=== PATIENT | female | born 1995 | race Caucasian/White ===

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

== ENCOUNTER 2017-07-15 10:37 | Day surgery (SDC) | payer OTHER ==
[~2017-07-15 10:37] MED LIST changes: -cefOXitin 2 GM in Premix Bag 1 BAG IV ONE
[2017-07-15] MEDS ORDERED: Lidocaine 2% 5 ML SDV ONE (11:04)
[2017-07-15] MEDS ORDERED: Propofol 200 MG/20 ML SDV ONE ×2 (11:04→14:09)
[2017-07-15] MEDS ORDERED: Midazolam 1 MG/ML 2 ML SDV ONE (11:04)
[2017-07-15] MEDS ORDERED: fentaNYL 100 MCG/2 ML SDV ONE (11:04)
--- NOTE | 2017-07-15 11:46 | PCM.PREANE ---
Preanesthetic Assessment - Anesthesia/Transfusion/Family Hx Anesthesia History: Prior Anesthesia Without Reaction Family History of Anesthesia Reaction: No Transfusion History: No Prior Transfusion(s) - Review of Systems General: No Symptoms Pulmonary: No Symptoms Cardiovascular: No Symptoms Neurological: No Symptoms Other: Reports: None - Physical Assessment NPO Status Date: 07/14/17 O2 Sat by Pulse Oximetry: 96 Respiratory Rate: 16 Vital Signs: Last Vital Signs Temp 36.1 C 07/15/17 11:14 Pulse 82 07/15/17 11:14 Resp 16 07/15/17 11:14 BP 123/64 07/15/17 11:14 Pulse Ox 96 07/15/17 11:14 Height: 1.68 m Weight: 104.326 kg ASA Class: 2 Mental Status: Alert & Oriented x3 Airway Class: Mallampati = 1 Dentition: Reports: Normal Dentition ROM/Head Extension: Full Lungs: Clear to Auscultation, Normal Respiratory Effort Cardiovascular: Regular Rate, Regular Rhythm - Lab Values: Laboratory Last Values Urine HCG, Qual NEGATIVE (NEGATIVE) 07/15/17 10:41 - Allergies Allergies/Adverse Reactions: Allergies Allergy/AdvReac Type Severity Reaction Status Date / Time acetaminophen [From Vicodin] Allergy Itching Verified 07/10/17 10:47 hydrocodone [From Vicodin] Allergy Itching Verified 07/10/17 10:47 metronidazole Allergy Nausea Verified 07/10/17 10:47 - Anesthesia Plan Pre-Op Medication Ordered: None - Acknowledgements Anesthesia Type Planned: MAC Pt an Appropriate Candidate for the Planned Anesthesia: Yes Alternatives and Risks of Anesthesia Discussed w Pt/Guardian: Yes Pt/Guardian Understands and Agrees with Anesthesia Plan: Yes PreAnesthesia Questionnaire HEENT History: Reports: Other (See Below) Other HEENT History: wears glasses/contacts Cardiovascular History: Reports: None Respiratory History: Reports: Asthma Gastrointestinal History: Reports: Other (See Below) Other Gastrointestinal History: anal fistula Genitourinary History: Reports: None 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 Musculoskeletal History: Reports: None Neurological History: Reports: None Psychiatric History: Reports: Depression Endocrine/Metabolic History: Reports: Obesity/BMI 30+ Hematologic History: Reports: None Immunologic History: Reports: None Oncologic (Cancer) History: Reports: None Dermatologic History: Reports: None - Infectious Disease History Infectious Disease History: Reports: None - Past Surgical History Head Surgeries/Procedures: Reports: None HEENT Surgical History: Reports: Adenoidectomy, Tonsillectomy, Other (See Below) GI Surgical History: Reports: Other (See Below) Other GI Surgeries/Procedures: I&D of anal fistula x2 - Past Imaging History Past Imaging History: Reports: CAT Scan - SUBSTANCE USE Smoking Status *Q: Never Smoker Second Hand Smoke Exposure: No Days Per Week of Alcohol Use: 0 Recreational Drug Use History: No - HOME MEDS Home Medications: Home Meds Albuterol [Ventolin HFA] 1 - 2 puff INH ASDIRECTED PRN 07/10/17 [History] Fluticasone Propionate [Flonase Allergy Relief] 1 spray NASBOTH ASDIRECTED 07/10 [History] Fluticasone/Vilanterol [Breo Ellipta 200-25 Mcg INH] 1 puff INH DAILY 07/10/17 [ History] Inulin/Chromium Picolinate [Fiber Gummies] 1 tab.chew CHEW BID 07/10/17 [History ] - CURRENT (IN HOUSE) MEDS Current Meds: Current Medications Lactated Ringer's (Ringers, Lactated) 1,000 mls @ 125 mls/hr IV ASDIRECTED FLAKITO Last Admin: 07/15/17 11:14 Dose: 125 mls/hr Sodium Chloride (Saline Flush) 10 ml FLUSH ASDIRECTED PRN PRN Reason: Keep Vein Open Sodium Chloride (Saline Flush) 2.5 ml FLUSH ASDIRECTED PRN PRN Reason: Keep Vein Open Sodium Chloride (Saline Flush) 10 ml FLUSH ASDIRECTED PRN PRN Reason: Keep Vein Open Sodium Chloride (Saline Flush) 2.5 ml FLUSH ASDIRECTED PRN PRN Reason: Keep Vein Open Discontinued Medications Fentanyl (Sublimaze) Confirm Administered Dose 100 mcg .ROUTE .STK-MED ONE Stop: 07/15/17 11:05 Lidocaine (Xylocaine-Mpf 2%) Confirm Administered Dose 5 ml .ROUTE .STK-MED ONE Stop: 07/15/17 11:05 Midazolam HCl (Versed 1 Mg/Ml) Confirm Administered Dose 2 mg .ROUTE .STK-MED ONE Stop: 07/15/17 11:05 Propofol (Diprivan 20 Ml) Confirm Administered Dose 400 mg .ROUTE .STK-MED ONE Stop: 07/15/17 11:05
--- NOTE | 2017-07-15 14:45 | PCM.POSTAN ---
POST ANESTHESIA ASSESSMENT - MENTAL STATUS Mental Status: Alert, Oriented - RESPIRATORY Respiratory Status: Respiratory Rate WNL, Airway Patent, O2 Saturation Stable - CARDIOVASCULAR CV Status: Pulse Rate WNL, Blood Pressure Stable - GASTROINTESTINAL GI Status: No Symptoms - POST OP HYDRATION Hydration Status: Adequate & Stable
[2017-07-15 15:37] VITALS: BP 98/60
--- NOTE | 2017-07-15 16:15 | PCM.OPNOTE ---
- General Post-Op/Procedure Note Date of Surgery/Procedure: 07/15/17 Operative Procedure(s): Colonoscopy Findings: Normal colonoscopy. Biopsies taken in the proximal and distal colon. Colon was very spastic. Pre Op Diagnosis: Change in bowel habits. Post-Op Diagnosis: Normal appearing colon Anesthesia Technique: MAC Primary Surgeon: Megan Johns Condition: Good Free Text/Narrative:: Intake & Output 07/15/17 07/15/17 07/15/17 06:59 14:59 22:59 Intake Total 1350 Balance 1350
--- NOTE | 2017-07-15 21:35 | OR ---
SURGEON: AMANDEEP SOLER MD DATE OF PROCEDURE: 07/15/2017 PREOPERATIVE DIAGNOSIS: Change in bowel habits. POSTOPERATIVE DIAGNOSIS: Change in bowel habits. PROCEDURE PERFORMED: Diagnostic colonoscopy. ANESTHESIA: MAC. INSTRUMENT USED: Olympus colonoscope. EXTENT OF EXAM: To the cecum. PREPARATION: Good. LIMITATIONS: None. INDICATIONS FOR EXAMINATION: The patient is a 22-year-old female who has a history of 2 anterior anal fistulas, which were both treated with primary fistulotomies. It was recommended that she undergo a diagnostic colonoscopy by her colorectal surgeon. The patient comes to me with changes in her bowel habits especially after meals. The decision was made to proceed with a diagnostic colonoscopy. We discussed the procedure, expected perioperative course, and risks including bleeding, infection, or damage to surrounding structures including perforation. The patient verbalized understanding and wishes to proceed. PROCEDURE IN DETAIL: The patient was brought into the endoscopy suite and placed in the left lateral decubitus position. A time-out was completed verifying the patient's name, age, date of , allergies, and procedure to be performed. Monitored anesthesia care was induced and continuous oxygen was provided via nasal cannula throughout the procedure. After adequate sedation was achieved, a digital rectal exam was performed. This exam was within normal limits. A well lubricated colonoscope was inserted in the rectum and advanced under direct visualization to the level of the cecum. The cecum was identified by both visual and anatomic landmarks. A photograph was taken of the terminal ileum. Given the concern for possible inflammatory bowel disease, I inspected this area thoroughly. There was no evidence of any inflammation. A biopsy was taken of the terminal ileum anyway. A photograph was taken of the cecal cap as well as with the scope retroflexed within the cecum. The biopsy was taken of the cecal wall and sent for histologic testing. The scope was then fully withdrawn while examining the color, texture, anatomy, integrity, mucosa from the cecum to the anal canal. There was no evidence of any cobblestone appearance, inflammation, or ulceration within the colon. The scope was brought into the sigmoid colon and a biopsy was taken there as well as in the rectum. The scope was brought into the rectum and retroflexed to allow visualization of the anal canal opening. This appeared normal and a photograph was taken. The scope was then straightened out and removed from the patient. The patient tolerated the procedure well. The cecum to anus time was 9 minutes. The patient was transferred to the PACU in stable condition. ENDOSCOPIC DIAGNOSIS: Normal appearing colon, questionable spasticity of the colon during the scope. RECOMMENDATIONS: Follow up in clinic in 2 weeks. DANIEL CURRY /[id number]
== END 2017-07-15 15:30 | disposition home or self-care (01) ==
LOC: MW.SDS 10:37
PROVIDERS: ATTEND Surgery
DX: K63.89 Other specified diseases of intestine (principal); J45.909 Unspecified asthma, uncomplicated; E66.9 Obesity, unspecified; Z79.51 Long term (current) use of inhaled steroids; Z90.89 Acquired absence of other organs; Z98.890 Other specified postprocedural states; Z88.8 Allergy status to other drugs, medicaments and biological substances; Z88.6 Allergy status to analgesic agent; Z88.5 Allergy status to narcotic agent; Z68.30 Body mass index [BMI] 30.0-30.9, adult; Z90.49 Acquired absence of other specified parts of digestive tract
CPT/HCPCS: 45380; 81025; J2250; J3010; J7120; 00811; 88305; J2704

== ENCOUNTER 2018-03-05 19:21 | Emergency (ER) | payer OTHER ==
--- NOTE | 2018-03-05 19:34 | EDM.PDOC ---
ED HPI GENERAL MEDICAL PROBLEM - General Chief Complaint: Flank Pain Stated Complaint: PT HAS BLADDER INFECTION Time Seen by Provider: 03/05/18 19:34 Source of Information: Reports: Patient History Limitations: Reports: No Limitations - History of Present Illness INITIAL COMMENTS - FREE TEXT/NARRATIVE: HISTORY AND PHYSICAL: History of present illness: Patient is a 23-year-old female who presents to the emergency room with complaints of left flank pain that goes to the left lower abdomen. She does not "a little" dysuria. She states that she took a long nap this afternoon as she feels fatigued. Decreased appetite with mild nausea. She denies any fever, chills, chest pain, shortness of breath or cough. Denies any nausea, vomiting, diarrhea, or constipation. Last menstrual period was 2 years ago; has an IUD in place. Denies any concerns of STD or . Denies any vaginal bleeding or discharge. Denies any change in stools, no blood or mucous. Review of systems: As per history of present illness and below otherwise all systems reviewed and negative. Past medical history: As per history of present illness and as reviewed below otherwise noncontributory. Surgical history: As per history of present illness and as reviewed below otherwise noncontributory. Social history: No reported history of drug or alcohol abuse. Family history: As per history of present illness and as reviewed below otherwise noncontributory. Physical exam: General: Well-developed and well-nourished 23-year-old female. Alert and oriented. Nontoxic appearing and in no acute distress. HEENT: Atraumatic, normocephalic, pupils equal and reactive bilaterally, negative for conjunctival pallor or scleral icterus, mucous membranes moist, throat clear, neck supple, nontender, trachea midline. No drooling or trismus noted. No meningeal signs Lungs: Clear to auscultation, breath sounds equal bilaterally, chest nontender. Heart: S1S2, regular rate and rhythm without overt murmur Abdomen: Soft, nondistended, mild left lateral abdominal pain/tender. Negative for masses or hepatosplenomegaly. Negative costovertebral tenderness. Pelvis: Stable nontender. Genitourinary: Deferred. Rectal: Deferred. Skin: Intact, warm, dry. No lesions or rashes noted. Extremities: Atraumatic, negative for cords or calf pain. Neurovascular unremarkable. Neuro: Awake, alert, oriented. Cranial nerves II through XII unremarkable. Cerebellum unremarkable. Motor and sensory unremarkable throughout. Exam nonfocal. Notes: Lab work is unremarkable. I did offer to do a CT of the abdomen and pelvis if she was having pain still. She declines at this time. We discussed appropriate follow-up. We discussed signs and symptoms that would prompt her to return to the emergency room. She voices understanding and is agreeable to plan of care. Denies any further questions or concerns at this time. Diagnostics: CBC, CMP, UA, HCGU Therapeutics: Zofran ODT Prescription: Tramadol (#15) Zofran 4mg Impression: Abdominal pain Plan: 1. Lab work was normal today with the exception of small amount of bacteria ( could be an early UTI). A culture was added to this; we will call you if you need to be placed on an antibiotic. 2. Increase your oral fluids. Small frequent meals to help avoid stomach upset. 3.Tylenol and ibuprofen as needed for pain. Tramadol and Zofran as directed. The Tramadol may cause drowsiness, so do not take while driving or needing to be functioning outside the house. 4. Please follow-up with your primary care provider Thursday. Return to the ED as needed and as we discussed. Definitive disposition and diagnosis as appropriate pending reevaluation and review of above. Onset: Today Location: Reports: Abdomen, Back left flank Pain Score (Numeric/FACES): 8 - Related Data Allergies Allergy/AdvReac Type Severity Reaction Status Date / Time acetaminophen [From Vicodin] Allergy Itching Verified 07/10/17 10:47 codeine Allergy Hives Verified 03/05/18 19:46 hydrocodone [From Vicodin] Allergy Itching Verified 07/10/17 10:47 metronidazole Allergy Nausea Verified 07/10/17 10:47 Home Meds: Home Meds . [No Known Home Meds] 03/05/18 [History] Past Medical History HEENT History: Reports: Other (See Below) Other HEENT History: wears glasses/contacts Cardiovascular History: Reports: None Respiratory History: Reports: Asthma Gastrointestinal History: Reports: Other (See Below) Other Gastrointestinal History: anal fistula Genitourinary History: Reports: None [employer]CH[employer]M History: Reports: None Musculoskeletal History: Reports: None Neurological History: Reports: None Psychiatric History: Reports: Depression Endocrine/Metabolic History: Reports: Obesity/BMI 30+ Hematologic History: Reports: None Immunologic History: Reports: None Oncologic (Cancer) History: Reports: None Dermatologic History: Reports: None - Infectious Disease History Infectious Disease History: Reports: None - Past Surgical History Head Surgeries/Procedures: Reports: None HEENT Surgical History: Reports: Adenoidectomy, Tonsillectomy, Other (See Below) GI Surgical History: Reports: Other (See Below) Other GI Surgeries/Procedures: I&D of anal fistula x2 - Past Imaging History Past Imaging History: Reports: CAT Scan Social & Family History - Family History Family Medical History: Noncontributory - Caffeine Use Caffeine Use: Reports: None ED ROS GENERAL - Review of Systems Review Of Systems: ROS reveals no pertinent complaints other than HPI. ED EXAM, GI/ABD - Physical Exam Exam: See Below (See dictation) Course - Vital Signs Last Recorded V/S: Last Vital Signs Temp 97.4 F 03/05/18 19:35 Pulse 109 H 03/05/18 19:35 Resp 17 03/05/18 19:35 BP 140/69 03/05/18 19:35 Pulse Ox 96 03/05/18 19:35 - Orders/Labs/Meds Orders: Active Orders 24 hr Category Date Time Status CMP [COMPREHENSIVE METABOLIC PN,CMP] [CHEM] Stat Lab 03/05/18 20:16 Received CULTURE URINE [RM] Stat Lab 03/05/18 20:37 Ordered Labs: Laboratory Tests 03/05/18 03/05/18 03/05/18 Range/Units 19:34 20:05 20:16 WBC 9.53 (4.0-11.0) K/uL RBC 4.69 (4.30-5.90) M/uL Hgb 13.3 (12.0-16.0) g/dL Hct 40.4 (36.0-46.0) % MCV 86.1 (80.0-98.0) fL MCH 28.4 (27.0-32.0) pg MCHC 32.9 (31.0-37.0) g/dL RDW Std Deviation 40.7 (28.0-62.0) fl RDW Coeff of Ursula 13 (11.0-15.0) % Plt Count 339 (150-400) K/uL MPV 9.70 (7.40-12.00) fL Neut % (Auto) 62.6 (48.0-80.0) % Lymph % (Auto) 27.1 (16.0-40.0) % [place] % (Auto) 8.8 (0.0-15.0) % Eos % (Auto) 1.2 (0.0-7.0) % Baso % (Auto) 0.3 (0.0-1.5) % Neut # (Auto) 6.0 H (1.4-5.7) K/uL Lymph # (Auto) 2.6 H (0.6-2.4) K/uL Faulk # (Auto) 0.8 (0.0-0.8) K/uL Eos # (Auto) 0.1 (0.0-0.7) K/uL Baso # (Auto) 0.0 (0.0-0.1) K/uL Nucleated RBC % 0.0 /100WBC Nucleated RBCs # 0 K/uL Urine Color YELLOW Urine Appearance CLEAR Urine pH 6.0 (5.0-8.0) Ur Specific [place] 1.020 (1.001-1.035) Urine Protein NEGATIVE (NEGATIVE) mg/dL Urine Glucose (UA) NEGATIVE (NEGATIVE) mg/dL Urine Ketones NEGATIVE (NEGATIVE) mg/dL Urine Occult Blood NEGATIVE (NEGATIVE) Urine Nitrite NEGATIVE (NEGATIVE) Urine Bilirubin NEGATIVE (NEGATIVE) Urine Urobilinogen 0.2 (<2.0) EU/dL Ur Leukocyte Esterase NEGATIVE (NEGATIVE) Urine RBC 1-2 (0-2/HPF) Urine WBC 1-2 (0-5/HPF) Ur Epithelial Cells FEW (NONE-FEW) Urine Bacteria FEW (NEGATIVE) Urine HCG, Qual NEGATIVE (NEGATIVE) Meds: Medications Discontinued Medications Generic Name Dose Route Start Last Admin Trade Name Freq PRN Reason Stop Dose Admin Ondansetron HCl 4 mg 03/05/18 19:53 03/05/18 20:09 Zofran Odt PO 03/05/18 19:54 4 mg ONETIME ONE Administration Departure - Departure Time of Disposition: 20:47 Disposition: Home, Self-Care 01 Clinical Impression: Abdominal pain Qualifiers: Abdominal location: left lower quadrant Qualified Code(s): R10.32 - Left lower quadrant pain - Discharge Information Instructions: Abdominal Pain, Adult, [id number] Referrals: PCP,None [Primary Care Provider] - Forms: ED Department Discharge Additional Instructions: The following information is given to patients seen in the emergency department who are being discharged to home. This information is to outline your options for follow-up care. We provide all patients seen in our emergency department with a follow-up referral. The need for follow-up, as well as the timing and circumstances, are variable depending upon the specifics of your emergency department visit. If you don't have a primary care physician on staff, we will provide you with a referral. We always advise you to contact your personal physician following an emergency department visit to inform them of the circumstance of the visit and for follow-up with them and/or the need for any referrals to a consulting specialist. The emergency department will also refer you to a specialist when appropriate. This referral assures that you have the opportunity for follow-up care with a specialist. All of these measure are taken in an effort to provide you with optimal care, which includes your follow-up. Under all circumstances we always encourage you to contact your private physician who remains a resource for coordinating your care. When calling for follow-up care, please make the office aware that this follow-up is from your recent emergency room visit. If for any reason you are refused follow-up, please contact the [facility] Emergency Department at and asked to speak to the emergency department charge nurse. [facility] [address] [place] [id number] 1. Lab work was normal today with the exception of small amount of bacteria ( could be an early UTI). A culture was added to this; we will call you if you need to be placed on an antibiotic. 2. Increase your oral fluids. Small frequent meals to help avoid stomach upset. 3.Tylenol and ibuprofen as needed for pain. Tramadol and Zofran as directed. The Tramadol may cause drowsiness, so do not take while driving or needing to be functioning outside the house. 4. Please follow-up with your primary care provider Thursday. Return to the ED as needed and as we discussed. - My Orders Last 24 Hours: My Active Orders 03/05/18 20:16 CMP [COMPREHENSIVE METABOLIC PN,CMP] [CHEM] Stat 03/05/18 20:37 CULTURE URINE [RM] Stat - Assessment/Plan Last 24 Hours: My Active Orders 03/05/18 20:16 CMP [COMPREHENSIVE METABOLIC PN,CMP] [CHEM] Stat 03/05/18 20:37 CULTURE URINE [RM] Stat
[2018-03-05] MEDS ORDERED: Ondansetron 4 MG Tab.DIS PO ONE (19:53)
[2018-03-05 20:43] LABS: CHLORIDE,CL 103 mmol/L (98-107); SODIUM,NA 138 mmol/L (136-145)
[2018-03-05 21:57] VITALS: BP 129/67
== END 2018-03-05 21:04 | disposition home or self-care (01) ==
LOC: MW.ED 19:21
DX: R10.32 Left lower quadrant pain (principal); Z88.6 Allergy status to analgesic agent; Z88.5 Allergy status to narcotic agent; Z88.8 Allergy status to other drugs, medicaments and biological substances
CPT/HCPCS: 36415; 80053; 81001; 81025; 85025; 87086; 99284; A9270; 99283

== ENCOUNTER 2018-06-30 19:20 | Emergency (ER) | payer OTHER ==
[2018-06-30] MEDS ORDERED: Sodium Chloride 0.9% 10 ML Syringe FLUSH PRN (19:50)
[2018-06-30] MEDS ORDERED: Sodium Chloride 0.9% 2.5 ML Syringe FLUSH PRN (19:50)
--- NOTE | 2018-06-30 19:57 | EDM.PDOC ---
ED HPI GENERAL MEDICAL PROBLEM - General Chief Complaint: Gastrointestinal Problem Stated Complaint: POSSIBLE ANAL FISTULA Time Seen by Provider: 06/30/18 19:35 - History of Present Illness INITIAL COMMENTS - FREE TEXT/NARRATIVE: HISTORY AND PHYSICAL: History of present illness: The patient is a 23-year-old female who presents with a history of 2 perirectal/ perianal fistulas and abscesses the first being addressed here in 2014 and the second in 2016. Dr. Johns did the initial stage of the procedure in July 2016 where she had an anterior midline intersphincteric perianal fistula and abscess on the left and had drainage of the abscess and placement of a Seton; she then had the completion surgery with Dr. Boykin in [place] and has been doing well ever since. She had a screening colonoscopy last year with Dr. Johns and everything was okay. The patient says she's been taking antibiotics for sinusitis and has taken 8 days, she has 2 days left of the antibiotic, and those symptoms are improving and she noticed a bump in her perianal area on Thursday which was tender and swollen. She says that the bump has gotten bigger and it is in the region of her old scar. She said she has had chills but no fever and no nausea or vomiting and no urine output. She said that when she pushed on the bump on Thursday and also this morning pus blood and stool came out of it. The patient says that there is no stool in her urine and no stool from her vagina. She is concerned because in the past she waited too long and did not get treatment and then had to have a big surgery and she would like evaluation. She called the clinic and was referred here. She says she's having some lower abdominal pain but it is not severe. She takes control pills and denies . Review of systems: As per history of present illness and below otherwise all systems reviewed and negative. Past medical history: As per history of present illness and as reviewed below otherwise noncontributory. Surgical history: As per history of present illness and as reviewed below otherwise noncontributory. Social history: No reported history of drug or alcohol abuse. Family history: As per history of present illness and as reviewed below otherwise noncontributory. Physical exam: General: Well-developed well-nourished overweight female who is nontoxic and vital signs are noted by me HEENT: Atraumatic, normocephalic, negative for conjunctival pallor or scleral icterus, mucous membranes moist, throat clear, neck supple, nontender, trachea midline. Lungs: Clear to auscultation, breath sounds equal bilaterally, chest nontender. Heart: S1S2, regular rate and rhythm no overt murmurs Abdomen: Soft, nondistended, nontender. Negative for masses or hepatosplenomegaly. Negative for costovertebral tenderness. Pelvis: Stable nontender. Genitourinary: Deferred. Rectal: There is a small soft external hemorrhoid seen at approximately o'clock lithotomy position which is not thrombosed or tender and there are no fissures. Rectal tone is normal and there is a visible area of old scar tissue seen at a proximally 2:00 lithotomy position. The patient indicates this region as the site of the problem. There is no erythema or fluctuance and I am unable to express anything with firm palpation. This area is also not particularly swollen but feels like thickened scar tissue. On digital exam I do not feel any fullness although the patient did not tolerate the exam very well. There is no perineal erythema or other lesions seen. Extremities: Atraumatic, negative for cords or calf pain. Neurovascular unremarkable. Neuro: Awake, alert, oriented. Cranial nerves II through XII unremarkable. Cerebellum unremarkable. Motor and sensory unremarkable throughout. Exam nonfocal. Diagnostics: CBC CMP UCG CT scan of the pelvis with contrast Therapeutics: IV placement for CT 1947: Case was discussed with Dr. Johns and she would like to perform a CT scan to ensure that there is no more fluid or abscess sitting higher and out of reach of my digital exam. The patient is aware of this and is agreeable. 2139: Dr. Johns called into the ED as she has reviewed the CT scan and there is no evidence of any abscess or abnormality. She wants her to finish the course of antibiotics she is on, Augmentin, and she is comfortable following her up in less the patient wants to go back to [place]. I relayed all this information to the patient. Impression: Perirectal pain with history of abscesses and fistulas stable Definitive disposition and diagnosis as appropriate pending reevaluation and review of above. Rectal Pain Score (Numeric/FACES): 7 - Related Data Allergies Allergy/AdvReac Type Severity Reaction Status Date / Time acetaminophen [From Vicodin] Allergy Itching Verified 06/30/18 19:38 codeine Allergy Hives Verified 06/30/18 19:38 hydrocodone [From Vicodin] Allergy Itching Verified 06/30/18 19:38 metronidazole Allergy Nausea Verified 06/30/18 19:38 Home Meds: Home Meds Amoxicillin/Clavulanate K [Augmentin 875-125 MG] 1 tab DAILY 06/30/18 [History] DULoxetine [Cymbalta] 40 mg PO DAILY 06/30/18 [History] Past Medical History HEENT History: Reports: Other (See Below) Other HEENT History: wears glasses/contacts Cardiovascular History: Reports: None Respiratory History: Reports: Asthma Gastrointestinal History: Reports: Other (See Below) Other Gastrointestinal History: anal fistula Genitourinary History: Reports: None Other Genitourinary History: bladder infection [employer]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 [employer]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: 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 Musculoskeletal History: Reports: None Neurological History: Reports: None Psychiatric History: Reports: Depression Endocrine/Metabolic History: Reports: Obesity/BMI 30+ Hematologic History: Reports: None Immunologic History: Reports: None Oncologic (Cancer) History: Reports: None Dermatologic History: Reports: None - Infectious Disease History Infectious Disease History: Reports: None - Past Surgical History Head Surgeries/Procedures: Reports: None HEENT Surgical History: Reports: Adenoidectomy, Tonsillectomy, Other (See Below) GI Surgical History: Reports: Other (See Below) Other GI Surgeries/Procedures: I&D of anal fistula x2 - Past Imaging History Past Imaging History: Reports: CAT Scan Social & Family History - Family History Family Medical History: Noncontributory - Tobacco Use Smoking Status *Q: Never Smoker - Caffeine Use Caffeine Use: Reports: None - Recreational Drug Use Recreational Drug Use: No ED ROS GENERAL - Review of Systems Review Of Systems: ROS reveals no pertinent complaints other than HPI. ED EXAM, GENERAL - Physical Exam Exam: See Below (See dictation) Course - Vital Signs Last Recorded V/S: Last Vital Signs Temp 36.6 C 06/30/18 19:35 Pulse 90 06/30/18 19:35 Resp 18 06/30/18 19:35 BP 129/70 06/30/18 19:35 Pulse Ox 97 06/30/18 19:35 - Orders/Labs/Meds Orders: Active Orders 24 hr Category Date Time Status Pelvis w Cont [CT] Stat Exams 06/30/18 19:50 Taken Sodium Chloride 0.9% [Saline Flush] Med 06/30/18 19:50 Active 10 ml FLUSH ASDIRECTED PRN Sodium Chloride 0.9% [Saline Flush] Med 06/30/18 19:50 Active 2.5 ml FLUSH ASDIRECTED PRN Saline Lock Insert [OM.PC] Stat Oth 06/30/18 19:50 Ordered Medication Orders Sodium Chloride (Saline Flush) 10 ml FLUSH ASDIRECTED PRN PRN Reason: Keep Vein Open Sodium Chloride (Saline Flush) 2.5 ml FLUSH ASDIRECTED PRN PRN Reason: Keep Vein Open Labs: Laboratory Tests 06/30/18 06/30/18 06/30/18 Range/Units 19:50 20:00 20:00 WBC 8.98 (4.0-11.0) K/uL RBC 4.67 (4.30-5.90) M/uL Hgb 13.0 (12.0-16.0) g/dL Hct 39.2 (36.0-46.0) % MCV 83.9 (80.0-98.0) fL MCH 27.8 (27.0-32.0) pg MCHC 33.2 (31.0-37.0) g/dL RDW Std Deviation 38.1 (28.0-62.0) fl RDW Coeff of Ursula 13 (11.0-15.0) % Plt Count 392 (150-400) K/uL MPV 9.50 (7.40-12.00) fL Neut % (Auto) 60.9 (48.0-80.0) % Lymph % (Auto) 29.5 (16.0-40.0) % [place] % (Auto) 8.5 (0.0-15.0) % Eos % (Auto) 0.9 (0.0-7.0) % Baso % (Auto) 0.2 (0.0-1.5) % Neut # (Auto) 5.5 (1.4-5.7) K/uL Lymph # (Auto) 2.7 H (0.6-2.4) K/uL [place] # (Auto) 0.8 (0.0-0.8) K/uL Eos # (Auto) 0.1 (0.0-0.7) K/uL Baso # (Auto) 0.0 (0.0-0.1) K/uL Nucleated RBC % 0.0 /100WBC Nucleated RBCs # 0 K/uL Sodium 141 (136-145) mmol/L Potassium 3.7 (3.5-5.1) mmol/L Chloride 106 (98-107) mmol/L Carbon Dioxide 24.8 (21.0-32.0) mmol/L BUN 10 (7.0-18.0) mg/dL Creatinine 0.9 (0.6-1.0) mg/dL Est Cr Clr Drug Dosing 92.56 mL/min Estimated GFR (MDRD) > 60.0 ml/min Glucose 98 (74-106) mg/dL Calcium 9.6 (8.5-10.1) mg/dL Total Bilirubin 0.2 (0.2-1.0) mg/dL AST 16 (15-37) IU/L ALT 29 (14-63) IU/L Alkaline Phosphatase 88 (46-116) U/L Total Protein 7.9 (6.4-8.2) g/dL Albumin 3.5 (3.4-5.0) g/dL Globulin 4.4 H (2.6-4.0) g/dL Albumin/Globulin Ratio 0.8 L (0.9-1.6) Urine HCG, Qual NEGATIVE (NEGATIVE) Meds: Medications Generic Name Dose Route Start Last Admin Trade Name Freq PRN Reason Stop Dose Admin Sodium Chloride 10 ml 06/30/18 19:50 Saline Flush FLUSH ASDIRECTED PRN Keep Vein Open Sodium Chloride 2.5 ml 06/30/18 19:50 Saline Flush FLUSH ASDIRECTED PRN Keep Vein Open Discontinued Medications Generic Name Dose Route Start Last Admin Trade Name Freq PRN Reason Stop Dose Admin Iopamidol 100 ml 06/30/18 20:47 06/30/18 20:48 Isovue Multipack-370 (76%) IVPUSH 06/30/18 20:48 100 ml ONETIME STA Administration Departure - Departure Time of Disposition: 21:39 Disposition: Home, Self-Care 01 Condition: Good Clinical Impression: Rectal pain - Discharge Information Referrals: Sachin Heart MD [Primary Care Provider] - Forms: ED Department Discharge Additional Instructions: The following information is given to patients seen in the emergency department who are being discharged to home. This information is to outline your options for follow-up care. We provide all patients seen in our emergency department with a follow-up referral. The need for follow-up, as well as the timing and circumstances, are variable depending upon the specifics of your emergency department visit. If you don't have a primary care physician on staff, we will provide you with a referral. We always advise you to contact your personal physician following an emergency department visit to inform them of the circumstance of the visit and for follow-up with them and/or the need for any referrals to a consulting specialist. The emergency department will also refer you to a specialist when appropriate. This referral assures that you have the opportunity for followup care with a specialist. All of these measure are taken in an effort to provide you with optimal care, which includes your followup. Under all circumstances we always encourage you to contact your private physician who remains a resource for coordinating your care. When calling for followup care, please make the office aware that this follow-up is from your recent emergency room visit. If for any reason you are refused follow-up, please contact the [facility] emergency department at and ask to speak to the emergency department charge nurse. [facility] Professional Building [address] [place] [phone] Push hydration and continue to monitor your symptoms. Finish the Augmentin you' re currently on an call and schedule a follow-up appointment with Dr. Johns or with your colorectal surgeon in [place] as you choose. Return to ER as needed and as discussed - My Orders Last 24 Hours: My Active Orders 06/30/18 19:50 Pelvis w Cont [CT] Stat Sodium Chloride 0.9% [Saline Flush] 10 ml FLUSH ASDIRECTED PRN Sodium Chloride 0.9% [Saline Flush] 2.5 ml FLUSH ASDIRECTED PRN Saline Lock Insert [OM.PC] Stat - Assessment/Plan Last 24 Hours: My Active Orders 06/30/18 19:50 Pelvis w Cont [CT] Stat Sodium Chloride 0.9% [Saline Flush] 10 ml FLUSH ASDIRECTED PRN Sodium Chloride 0.9% [Saline Flush] 2.5 ml FLUSH ASDIRECTED PRN Saline Lock Insert [OM.PC] Stat
[2018-06-30 20:35] LABS: CHLORIDE,CL 106 mmol/L (98-107); SODIUM,NA 141 mmol/L (136-145)
[2018-06-30] MEDS ORDERED: Iopamidol 755 MG/ML 500 ML Multipack Bottle IVPUSH STA (20:47)
[2018-06-30 22:06] VITALS: BP 123/69
--- NOTE | 2018-07-01 14:04 | CT ---
EXAM DATE: 06/30/18 PATIENT'S AGE: 23 Patient: ROSETTA BHAGAT Facility: [place], [place] Site . Site : 1995 Study: CT Pelvis [id number] 8:59:44 PM Ordering Physician: Tonio Neumann Final Report: Indication: Perirectal abscess Technique: A pelvic CT from with intravenous contrast. 100 mL of Isovue 370 administered. Comparison: None available Findings: No discrete perirectal or perianal collection seen. The visualized gastrointestinal tract is within normal limits. No significant free fluid or free air within the pelvis. No discrete uterine or bladder abnormality seen. No adnexal mass. No abnormally enlarged lymph nodes. Unremarkable osseous structures. Impression: No perirectal or perianal abscess seen. Dictated by Yasmani Khanna MD @ 06/30/2018 9:23:13 PM Please note that all CT scans at this facility use dose modulation, iterative reconstruction, and/or weight-based dosing when appropriate to reduce radiation dose to as low as reasonably achievable. Dictated by: Yasmani Khanna MD @ 06/30/2018 21:24:09 (Electronic Signature) Report Signed by Proxy. [facility]
== END 2018-06-30 22:01 | disposition home or self-care (01) ==
LOC: MW.ED 19:20
DX: K62.89 Other specified diseases of anus and rectum (principal); E66.9 Obesity, unspecified; Z88.1 Allergy status to other antibiotic agents; Z88.5 Allergy status to narcotic agent
CPT/HCPCS: 36415; 72193; 80053; 81025; 85025; 99284; Q9967

== ENCOUNTER 2019-11-11 05:22 | Inpatient (IN) | payer OTHER ==
[2019-11-11] MEDS ORDERED: Citric Acid/Sodium Citrate Solution 30 ML Cup PO ONE (06:19)
[2019-11-11] MEDS ORDERED: Sodium Chloride 0.9% 10 ML SDV IV PRN (06:19)
[2019-11-11] MEDS ORDERED: Sodium Chloride 0.9% 2.5 ML Syringe FLUSH PRN (06:19)
[2019-11-11] MEDS ORDERED: Sodium Chloride 0.9% 10 ML Syringe FLUSH PRN (06:19)
[2019-11-11] MEDS ORDERED: Oxytocin/0.9 % Sodium Chloride 30 UNIT/500 ML BAG IV SCH (06:30)
[2019-11-11] MEDS ORDERED: Lactated Ringers 1,000 ML IV SCH (06:30)
--- NOTE | 2019-11-11 06:57 | PCM.PREANE ---
Preanesthetic Assessment - Anesthesia/Transfusion/Family Hx Anesthesia History: Prior Anesthesia Without Reaction Family History of Anesthesia Reaction: No Transfusion History: No Prior Transfusion(s) Intubation History: Unknown - Review of Systems General: No Symptoms Pulmonary: No Symptoms Cardiovascular: No Symptoms Gastrointestinal: No Symptoms Neurological: No Symptoms Other: Reports: None - Physical Assessment Height: 5 ft 6 in Weight: 144.242 kg ASA Class: 2 Mental Status: Alert & Oriented x3 Airway Class: Mallampati = 1 Dentition: Reports: Normal Dentition Thyro-Mental Finger Breadths: 3 Mouth Opening Finger Breadths: 3 ROM/Head Extension: Full Lungs: Clear to Auscultation, Normal Respiratory Effort Cardiovascular: Regular Rate, Regular Rhythm - Lab Values: Laboratory Last Values WBC 11.20 K/uL (4.0-11.0) H 11/11/19 06:10 RBC 4.37 M/uL (4.30-5.90) 11/11/19 06:10 Hgb 11.3 g/dL (12.0-16.0) L 11/11/19 06:10 Hct 36.3 % (36.0-46.0) 11/11/19 06:10 MCV 83.1 fL (80.0-98.0) 11/11/19 06:10 MCH 25.9 pg (27.0-32.0) L 11/11/19 06:10 MCHC 31.1 g/dL (31.0-37.0) 11/11/19 06:10 RDW Std Deviation 46.7 fl (28.0-62.0) 11/11/19 06:10 RDW Coeff of Ursula 15 % (11.0-15.0) 11/11/19 06:10 Plt Count 262 K/uL (150-400) 11/11/19 06:10 MPV 10.30 fL (7.40-12.00) 11/11/19 06:10 Nucleated RBC % 0.0 /100WBC 11/11/19 06:10 Nucleated RBCs # 0 K/uL 11/11/19 06:10 - Allergies Allergies/Adverse Reactions: Allergies Allergy/AdvReac Type Severity Reaction Status Date / Time metronidazole Allergy Facial Verified 11/07/19 12:14 Swelling nitrofurantoin Allergy Facial Verified 11/07/19 12:34 [From Macrobid] Swelling - Blood Blood Available: No - Anesthesia Plan Pre-Op Medication Ordered: None - Acknowledgements Anesthesia Type Planned: Spinal (general anesthesia back-up call) Pt an Appropriate Candidate for the Planned Anesthesia: Yes Alternatives and Risks of Anesthesia Discussed w Pt/Guardian: Yes Pt/Guardian Understands and Agrees with Anesthesia Plan: Yes PreAnesthesia Questionnaire HEENT History: Reports: Other (See Below) Other HEENT History: wears glasses/contacts Cardiovascular History: Reports: None Respiratory History: Reports: None Gastrointestinal History: Reports: Other (See Below) Other Gastrointestinal History: anal fistula Genitourinary History: Reports: None [employer]ING LEAD History: Reports: Musculoskeletal History: Reports: None Neurological History: Reports: None Psychiatric History: Reports: None Endocrine/Metabolic History: Reports: Obesity/BMI 30+ (BMI 51.3) Hematologic History: Reports: None Immunologic History: Reports: None Oncologic (Cancer) History: Reports: None Dermatologic History: Reports: None - Infectious Disease History Infectious Disease History: Reports: None - Past Surgical History Head Surgeries/Procedures: Reports: None HEENT Surgical History: Reports: Adenoidectomy, Tonsillectomy Cardiovascular Surgical History: Reports: None Respiratory Surgical History: Reports: None GI Surgical History: Reports: Other (See Below) Other GI Surgeries/Procedures: I&D of anal fistula x2 Female Surgical History: Reports: None Endocrine Surgical History: Reports: None Neurological Surgical History: Reports: None Musculoskeletal Surgical History: Reports: None Oncologic Surgical History: Reports: None Dermatological Surgical History: Reports: None - Past Imaging History Past Imaging History: Reports: CAT Scan - SUBSTANCE USE Smoking Status *Q: Never Smoker - HOME MEDS Home Medications: Home Meds Prenat 115/Iron Fum/Folic/Dss [ 19 Tablet] 1 each PO DAILY 08/19/19 [ History] polyethylene glycoL 3350 [Miralax] 17 gm PO DAILY 08/19/19 [History] Docusate Sodium [Colace] 100 mg PO DAILY 11/07/19 [History] Iron 150 mg PO DAILY 11/07/19 [History] - CURRENT (IN HOUSE) MEDS Current Meds: Current Medications Lactated Ringer's (Ringers, Lactated) 1,000 mls @ 500 mls/hr IV BOLUS FLAKITO Oxytocin/Sodium Chloride (Oxytocin 30 Unit/500 Ml-Ns) 30 unit in 500 mls @ 250 mls/hr IV TITRATE FLAKITO Cefazolin Sodium/Dextrose 2 gm (/ Premix) 50 mls @ 100 mls/hr IV ONETIME ONE Stop: 11/11/19 07:52 Sodium Chloride (Saline Flush) 10 ml FLUSH ASDIRECTED PRN PRN Reason: Keep Vein Open Sodium Chloride (Saline Flush) 2.5 ml FLUSH ASDIRECTED PRN PRN Reason: Keep Vein Open Sodium Chloride (Normal Saline) 10 ml IV ASDIRECTED PRN PRN Reason: IV Use Discontinued Medications Citric Acid/Sodium Citrate (Bicitra Solution) 30 ml PO ONETIME ONE Stop: 11/11/19 06:20
[2019-11-11] MEDS ORDERED: Oxytocin 10 Units/1 ML SDV ONE ×2 (07:20→08:34)
[2019-11-11] MEDS ORDERED: Ondansetron 4 MG/2 ML SDV ONE (07:20)
[2019-11-11] MEDS ORDERED: Phenylephrine 1% 10 MG/ML SDV ONE (07:20)
[2019-11-11] MEDS ORDERED: Morphine PF 10 MG/10 ML SDV ONE (07:20)
[2019-11-11] MEDS ORDERED: ceFAZolin 2 GM in Premix Bag 1 BAG IV ONE (07:23)
[2019-11-11] MEDS ORDERED: ceFAZolin/Dextrose,Iso-Osmotic 2 GM/50 ML Duplex Bag IV ONE (07:42)
[2019-11-11] MEDS ORDERED: diphenhydrAMINE 50 MG/ML SDV IVPUSH PRN ×2 (08:25→08:37)
[2019-11-11] MEDS ORDERED: Naloxone 0.4 MG/ML Syringe IVPUSH PRN (08:25)
[2019-11-11] MEDS ORDERED: Nalbuphine 10 MG/1 ML Vial IVPUSH PRN (08:25)
[2019-11-11] MEDS ORDERED: fentaNYL 100 MCG/2 ML SDV IVPUSH PRN (08:28)
[2019-11-11] MEDS ORDERED: Acetaminophen/oxyCODONE 325-5 MG Tab PO PRN ×2 (08:28→08:37)
[2019-11-11] MEDS ORDERED: Octyl 2-Cyanoacrylate 1 Tube ONE (08:32)
[2019-11-11] MEDS ORDERED: Bisacodyl 10 MG Supp RECTAL PRN (08:37)
[2019-11-11] MEDS ORDERED: Ondansetron 4 MG/2 ML SDV IVPUSH PRN (08:37)
[2019-11-11] MEDS ORDERED: Tranexamic Acid 1,000 MG in Sodium Chloride 0.9% 100 ML IV PRN (08:37)
[2019-11-11] MEDS ORDERED: Lanolin 100% Cream 7 GM Tube TOP PRN (08:37)
[2019-11-11] MEDS ORDERED: Oxytocin 10 Units/1 ML SDV IM PRN (08:37)
[2019-11-11] MEDS ORDERED: Methylergonovine 0.2 MG/1 ML Amp IM PRN (08:37)
[2019-11-11] MEDS ORDERED: Misoprostol 200 MCG Tab RECTAL PRN (08:37)
--- NOTE | 2019-11-11 08:37 | PCM.OPNOTE ---
- General Post-Op/Procedure Note Date of Surgery/Procedure: 11/11/19 Operative Procedure(s): primary low transverse Findings: Liveborn female 8/9 weight pending, normal appearing uterus tubes and ovaries, labored low uterine segment Pre Op Diagnosis: 38 6/7 weeks, prior fistulotomy and repair Post-Op Diagnosis: Same Anesthesia Technique: Spinal Primary Surgeon: Camelia Handy Secondary Surgeon: Mya Gonzales Anesthesia Provider: Maritza Bell Dining Car Steward: Mechelle Gonzalez Pathology: none Fluid Replacement, Intraop: 1,000 EBL in mLs: 500 Complications: None Known. Condition: Good
[2019-11-11] MEDS ORDERED: Oxytocin/Lactated Ringers 30 UNIT/500 ML BAG IV SCH (08:45)
[2019-11-11] MEDS: Ketorolac 30 MG/ML SDV IVPUSH SCH ×3 (09:11→20:23)
[2019-11-11] MEDS: Lactated Ringers 1,000 ML IV SCH ×2 (12:33→20:26)
--- NOTE | 2019-11-11 18:05 | OR ---
SURGEON: Camelia Handy M.D. DATE OF PROCEDURE: 11/11/2019 PREOPERATIVE DIAGNOSES: 1. 38-6/7 week intrauterine . 2. Prior fistulotomy and repair. 3. Prodromal labor. POSTOPERATIVE DIAGNOSES: 1. 38-6/7 week intrauterine . 2. Prior fistulotomy and repair. 3. Prodromal labor. PROCEDURE PERFORMED: Primary low-transverse section. PRIMARY SURGEON: Camelia Handy M.D. ANESTHESIA: Spinal. ESTIMATED BLOOD LOSS: 500 mL. FLUIDS: 1000 mL crystalloid. FINDINGS: Liveborn female. score of 8 and 9. Weight is pending. Normal-appearing uterus, tubes, and ovaries. Lower uterine segment was thin and labored. COMPLICATIONS: None known. DISPOSITION: Stable to Recovery. BRIEF HISTORY: This is a 24-year-old female, G1, P0. She presents for primary delivery due to a complicated prior fistulotomy and repair, desiring no labor at all. She has had irregular painful contractions over the past 2 weeks with cervical change in the clinic but not active labor. She presents for a primary delivery with risks discussed including bleeding; infection; injury to bowel, bladder, blood vessels or other organs; risk of thromboembolic event; and risk of anesthesia. Understanding all these risks, she does desire to proceed. DESCRIPTION OF PROCEDURE: With the patient in left tilt position, under adequate spinal analgesia, the abdomen was prepped with chlorhexidine and draped in usual fashion for abdominal surgery. SCDs were in place. Robledo catheter had been placed. An appropriate time-out was held. She had received 2 g of Ancef IV. After documentation of adequate analgesia, a transverse curvilinear incision was made 2 cm cephalad from the pubic symphysis and carried through subcutaneous tissue, which was dissected to the fascia, which was then scored transversely in the midline. The fascial incision was extended using curved Gonzales scissors. The fascia was elevated from the underlying rectus muscle using sharp and blunt dissection. The rectus muscles were bluntly in the midline. A finger was used to enter the peritoneal cavity. The incision was extended using blunt dissection. The Sampson O retractor was placed. The visceroperitoneum over the lower uterine segment was incised to develop an adequate bladder flap. A transverse curvilinear incision was made over the lower uterine segment. The lower uterine segment was noted to be markedly thinned, consistent with labor. A finger was used to enter the amniotic cavity. The incision was extended in a cephalad and caudad manner. Using blunt dissection, the head was delivered via the uterine incision. The infant was bulb suctioned by nose and mouth and the remainder of the 's body was delivered. After 1 minute, the cord was doubly clamped and cut. The infant was handed to the nurse in attendance at delivery. The infant was a liveborn female, score of 8 and 9. Weight is pending. Cord blood was collected for cord ABGs as well as routine cord blood sampling. Pitocin was initiated after delivery of the infant to assist with delivery the placenta which was removed manually. The cervix was opened with ring forceps. The uterine cavity was cleaned with a dry laparotomy tape. The uterine incision was closed with a running lock suture of 0 Polysorb. The uterine incision was inspected and it was hemostatic. A second layer was not placed due to concern about the thin lower uterine segment. After final inspection for hemostasis, the Sampson O retractor was removed. Tubes and ovaries had been inspected and appeared normal. A final inspection of the uterine incision confirmed hemostasis. The rectus muscle and peritoneum were loosely approximated in the midline using a running mattress suture of 0 Polysorb. The fascia was closed with a running suture of 0 Polysorb. Subcutaneous tissue was irrigated. Any areas of bleeding that were noted were cauterized. The deep subcutaneous tissue was reapproximated using a running suture of 0 plain and a subcuticular suture of 3-0 Monocryl followed by Dermabond was utilized for skin closure. Final sponge, needle, and instrument counts were correct. There were no know complications. Mother and baby are in Recovery in good condition. ABENA / PATRICIO /[id number]
[2019-11-11] MEDS: Docusate Sodium 100 MG Cap PO SCH (20:23)
[2019-11-12] MEDS: Ketorolac 30 MG/ML SDV IVPUSH SCH ×2 (03:59→09:45)
[2019-11-12] MEDS: Docusate Sodium 100 MG Cap PO SCH ×2 (10:37→21:44)
[2019-11-12] MEDS: Acetaminophen/oxyCODONE 325-5 MG Tab PO PRN ×3 (10:37→23:25)
--- NOTE | 2019-11-12 10:54 | PCM.PNPP ---
- General Info Date of Service: 11/12/19 Functional Status: Reports: Pain Controlled, Tolerating Diet, Ambulating, Urinating - Review of Systems General: Reports: Fatigue. Denies: Fever, Weakness Pulmonary: Denies: Shortness of Breath Cardiovascular: Denies: Chest Pain, Palpitations, Lightheadedness Gastrointestinal: Denies: Abdominal Pain, Nausea, Vomiting Genitourinary: Denies: Flank Pain Musculoskeletal: Reports: No Symptoms Skin: Reports: No Symptoms Neurological: Reports: No Symptoms Psychiatric: Reports: No Symptoms - General Info Date of Service: 11/12/19 - Patient Data Vital Signs - Most Recent: Last Vital Signs Temp 36.5 C 11/12/19 07:50 Pulse 91 11/12/19 07:50 Resp 16 11/12/19 07:50 BP 129/59 L 11/12/19 07:50 Pulse Ox 96 11/12/19 07:50 Weight - Most Recent: 144.242 kg I&O - Last 24 Hours: Intake & Output 11/11/19 11/12/19 11/12/19 22:59 06:59 14:59 Intake Total 400 Output Total 1750 Balance -1350 Lab Results - Last 24 Hours: Laboratory Results - last 24 hr 11/12/19 Range/Units 06:15 Hgb 9.2 L (12.0-16.0) g/dL Hct 29.7 L (36.0-46.0) % Med Orders - Current: Current Medications Bisacodyl (Dulcolax) 10 mg RECTAL ONETIME PRN PRN Reason: Constipation Diphenhydramine HCl (Benadryl) 25 mg IVPUSH Q6H PRN PRN Reason: Itching or Nausea Docusate Sodium (Colace) 100 mg PO BID ON LICENSE OF [facility] Last Admin: 11/12/19 10:37 Dose: 100 mg Emollient Ointment (Lansinoh Hpa) 0 gm TOP ASDIRECTED PRN PRN Reason: Sore Nipples Fentanyl (Sublimaze) 25 - 50 mcg IVPUSH Q30M PRN PRN Reason: Pain Lactated Ringer's (Ringers, Lactated) 1,000 mls @ 500 mls/hr IV BOLUS ON LICENSE OF [facility] Oxytocin/Sodium Chloride (Oxytocin 30 Unit/500 Ml-Ns) 30 unit in 500 mls @ 250 mls/hr IV TITRATE ON LICENSE OF [facility] Tranexamic Acid 1,000 mg/ (Sodium Chloride) 110 mls @ 660 mls/hr IV ONETIME PRN PRN Reason: Bleeding Lactated Ringer's (Ringers, Lactated) 1,000 mls @ 125 mls/hr IV ASDIRECTED FLAKITO Last Admin: 11/11/19 20:26 Dose: 125 mls/hr Oxytocin/Lactated Ringer's (Pitocin In Lr 30 Units/500 Ml) 30 unit in 500 mls @ 999 mls/hr IV TITRATE FLAKITO; Protocol Ibuprofen (Motrin) 800 mg PO Q8H PRN PRN Reason: mild pain or fever Methylergonovine Maleate (Methergine) 0.2 mg IM ONETIME PRN PRN Reason: Excessive Vaginal Bleeding Misoprostol (Cytotec) 1,000 mcg RECTAL ONETIME PRN PRN Reason: excessive bleeding Ondansetron HCl (Zofran) 4 mg IVPUSH Q4H PRN PRN Reason: Nausea/Vomiting Last Admin: 11/11/19 12:44 Dose: 4 mg Oxycodone/Acetaminophen (Percocet 325-5 Mg) 1 - 2 tab PO Q6H PRN PRN Reason: Pain Stop: 11/13/19 14:00 Last Admin: 11/12/19 00:46 Dose: 1 tab Oxycodone/Acetaminophen (Percocet 325-5 Mg) 1 tab PO Q4H PRN PRN Reason: Pain (moderate 4-6) Oxycodone/Acetaminophen (Percocet 325-5 Mg) 2 tab PO Q4H PRN PRN Reason: Pain (moderate 4-6) Last Admin: 11/12/19 10:37 Dose: 2 tab Oxytocin (Pitocin) 10 unit IM ASDIRECTED PRN PRN Reason: Excessive Vaginal Bleeding Sodium Chloride (Saline Flush) 10 ml FLUSH ASDIRECTED PRN PRN Reason: Keep Vein Open Sodium Chloride (Saline Flush) 2.5 ml FLUSH ASDIRECTED PRN PRN Reason: Keep Vein Open Sodium Chloride (Normal Saline) 10 ml IV ASDIRECTED PRN PRN Reason: IV Use Discontinued Medications Cefazolin Sodium/Dextrose (Ancef) Confirm Administered Dose 2 gm IV .STK-MED ONE Stop: 11/11/19 07:43 Citric Acid/Sodium Citrate (Bicitra Solution) 30 ml PO ONETIME ONE Stop: 11/11/19 06:20 Diphenhydramine HCl (Benadryl) 25 mg IVPUSH Q4H PRN PRN Reason: Itching Stop: 11/12/19 08:27 Last Admin: 11/11/19 12:43 Dose: 25 mg Cefazolin Sodium/Dextrose 2 gm (/ Premix) 50 mls @ 100 mls/hr IV ONETIME ONE Stop: 11/11/19 07:52 Ketorolac Tromethamine (Toradol) 30 mg IVPUSH Q6H FLAKITO Stop: 11/12/19 08:46 Last Admin: 11/12/19 03:59 Dose: 30 mg Morphine Sulfate (Duramorph Pf) Confirm Administered Dose 10 mg .ROUTE .STK-MED ONE Stop: 11/11/19 07:21 Nalbuphine HCl (Nubain) 5 mg IVPUSH Q3H PRN PRN Reason: Pruritis Stop: 11/12/19 08:27 Last Admin: 11/11/19 10:07 Dose: 5 mg Naloxone HCl (Narcan) 0.1 mg IVPUSH ONETIME PRN PRN Reason: Other Stop: 11/12/19 08:27 Octyl Cyanoacrylate (Dermabond Advance) Confirm Administered Dose 1 applic .ROUTE .STK-MED ONE Stop: 11/11/19 08:33 Ondansetron HCl (Zofran) Confirm Administered Dose 4 mg .ROUTE .STK-MED ONE Stop: 11/11/19 07:21 Oxytocin (Pitocin) Confirm Administered Dose 20 unit .ROUTE .STK-MED ONE Stop: 11/11/19 07:21 Oxytocin (Pitocin) Confirm Administered Dose 20 unit .ROUTE .STK-MED ONE Stop: 11/11/19 08:35 Phenylephrine HCl (Tera-Synephrine) Confirm Administered Dose 10 mg .ROUTE .STK- MED ONE Stop: 11/11/19 07:21 - Interaction Support Person: - Recovery Exam Fundal Tone: Firm Fundal Level: 1 Fingerbreadths Below Umbilicus Fundal Placement: Midline Lochia Amount: Small Lochia Color: Rubra/Red Perineum Description: Intact, Minimal Bruising/Swelling Episiotomy/Laceration: None Bladder Status: Indwelling Catheter in Place Urinary Elimination: Indwelling Catheter - Exam General: Alert, Oriented Lungs: Normal Respiratory Effort Cardiovascular: Regular Rate, Regular Rhythm GI/Abdominal Exam: Normal Bowel Sounds, Soft Extremities: Pedal Edema (trace). No: Dalia's Sign Skin: Warm, Dry, Intact Wound/Incisions: Healing Well, No Drainage. No: Erythema Neurological: No New Focal Deficit Psy/Mental Status: Alert, Normal Affect, Normal Mood - Problem List & Annotations (1) S/P repeat low transverse SNOMED Code(s): 809946605, [id number], 655370080, 509372854, 414153572 Code(s): Z98.891 - HISTORY OF UTERINE SCAR FROM PREVIOUS SURGERY Status: Acute Current Visit: Yes - Problem List Review Problem List Initiated/Reviewed/Updated: Yes - Assessment Assessment:: POD 1 status post repeat c section - Plan Plan:: VS and labs are reassuring. Continue postoperative/ cares.
--- NOTE | 2019-11-12 11:51 | PCM48HPAN ---
Post Anesthesia Note - EVALUATION WITHIN 48HRS OF ANESTHETIC Vital Signs in Normal Range: Yes Patient Participated in Evaluation: Yes Respiratory Function Stable: Yes Airway Patent: Yes Cardiovascular Function Stable: Yes Hydration Status Stable: Yes Pain Control Satisfactory: Yes Nausea and Vomiting Control Satisfactory: Yes Mental Status Recovered: Yes Vital Signs: Last Vital Signs Temp 36.5 C 11/12/19 07:50 Pulse 91 11/12/19 07:50 Resp 16 11/12/19 07:50 BP 129/59 L 11/12/19 07:50 Pulse Ox 96 11/12/19 07:50 - COMMENTS/OBSERVATIONS Free Text/Narrative:: full sensation in legs
[2019-11-12] MEDS: Ibuprofen 800 MG Tab PO PRN (14:45)
[2019-11-13] MEDS: Ibuprofen 800 MG Tab PO PRN ×2 (00:34→09:41)
[2019-11-13] MEDS: Acetaminophen/oxyCODONE 325-5 MG Tab PO PRN ×2 (06:32→11:31)
[2019-11-13] MEDS: Docusate Sodium 100 MG Cap PO SCH (09:42)
--- NOTE | 2019-11-13 11:02 | PCM.PNPP ---
- General Info Date of Service: 11/13/19 Functional Status: Reports: Pain Controlled, Tolerating Diet, Ambulating, Urinating - Review of Systems General: Denies: Fever, Weakness, Fatigue Pulmonary: Denies: Shortness of Breath Cardiovascular: Denies: Chest Pain, Palpitations, Lightheadedness Gastrointestinal: Denies: Abdominal Pain, Nausea, Vomiting Genitourinary: Denies: Flank Pain Musculoskeletal: Reports: No Symptoms Skin: Reports: No Symptoms Neurological: Reports: No Symptoms Psychiatric: Reports: No Symptoms - General Info Date of Service: 11/13/19 - Patient Data Vital Signs - Most Recent: Last Vital Signs Temp 36.3 C 11/13/19 07:00 Pulse 87 11/13/19 07:00 Resp 14 11/13/19 07:00 BP 122/73 11/13/19 07:00 Pulse Ox 95 11/13/19 07:00 Weight - Most Recent: 144.242 kg Med Orders - Current: Current Medications Bisacodyl (Dulcolax) 10 mg RECTAL ONETIME PRN PRN Reason: Constipation Diphenhydramine HCl (Benadryl) 25 mg IVPUSH Q6H PRN PRN Reason: Itching or Nausea Docusate Sodium (Colace) 100 mg PO BID [facility] Last Admin: 11/13/19 09:42 Dose: 100 mg Emollient Ointment (Lansinoh Hpa) 0 gm TOP ASDIRECTED PRN PRN Reason: Sore Nipples Last Admin: 11/12/19 17:33 Dose: 7 gram Fentanyl (Sublimaze) 25 - 50 mcg IVPUSH Q30M PRN PRN Reason: Pain Lactated Ringer's (Ringers, Lactated) 1,000 mls @ 500 mls/hr IV BOLUS [facility] Oxytocin/Sodium Chloride (Oxytocin 30 Unit/500 Ml-Ns) 30 unit in 500 mls @ 250 mls/hr IV TITRATE FLAKITO Tranexamic Acid 1,000 mg/ (Sodium Chloride) 110 mls @ 660 mls/hr IV ONETIME PRN PRN Reason: Bleeding Lactated Ringer's (Ringers, Lactated) 1,000 mls @ 125 mls/hr IV ASDIRECTED [facility] Last Admin: 11/11/19 20:26 Dose: 125 mls/hr Oxytocin/Lactated Ringer's (Pitocin In Lr 30 Units/500 Ml) 30 unit in 500 mls @ 999 mls/hr IV TITRATE FLAKITO; Protocol Ibuprofen (Motrin) 800 mg PO Q8H PRN PRN Reason: mild pain or fever Last Admin: 11/13/19 09:41 Dose: 800 mg Methylergonovine Maleate (Methergine) 0.2 mg IM ONETIME PRN PRN Reason: Excessive Vaginal Bleeding Misoprostol (Cytotec) 1,000 mcg RECTAL ONETIME PRN PRN Reason: excessive bleeding Ondansetron HCl (Zofran) 4 mg IVPUSH Q4H PRN PRN Reason: Nausea/Vomiting Last Admin: 11/11/19 12:44 Dose: 4 mg Oxycodone/Acetaminophen (Percocet 325-5 Mg) 1 - 2 tab PO Q6H PRN PRN Reason: Pain Stop: 11/13/19 14:00 Last Admin: 11/12/19 00:46 Dose: 1 tab Oxycodone/Acetaminophen (Percocet 325-5 Mg) 1 tab PO Q4H PRN PRN Reason: Pain (moderate 4-6) Last Admin: 11/12/19 14:49 Dose: 1 tab Oxycodone/Acetaminophen (Percocet 325-5 Mg) 2 tab PO Q4H PRN PRN Reason: Pain (moderate 4-6) Last Admin: 11/13/19 06:32 Dose: 2 tab Oxytocin (Pitocin) 10 unit IM ASDIRECTED PRN PRN Reason: Excessive Vaginal Bleeding Sodium Chloride (Saline Flush) 10 ml FLUSH ASDIRECTED PRN PRN Reason: Keep Vein Open Sodium Chloride (Saline Flush) 2.5 ml FLUSH ASDIRECTED PRN PRN Reason: Keep Vein Open Sodium Chloride (Normal Saline) 10 ml IV ASDIRECTED PRN PRN Reason: IV Use Discontinued Medications Cefazolin Sodium/Dextrose (Ancef) Confirm Administered Dose 2 gm IV .STK-MED ONE Stop: 11/11/19 07:43 Citric Acid/Sodium Citrate (Bicitra Solution) 30 ml PO ONETIME ONE Stop: 11/11/19 06:20 Diphenhydramine HCl (Benadryl) 25 mg IVPUSH Q4H PRN PRN Reason: Itching Stop: 11/12/19 08:27 Last Admin: 05/22/20 12:43 Dose: 25 mg Cefazolin Sodium/Dextrose 2 gm (/ Premix) 50 mls @ 100 mls/hr IV ONETIME ONE Stop: 11/11/19 07:52 Ketorolac Tromethamine (Toradol) 30 mg IVPUSH Q6H FLAKITO Stop: 11/12/19 08:46 Last Admin: 11/12/19 09:45 Dose: Not Given Morphine Sulfate (Duramorph Pf) Confirm Administered Dose 10 mg .ROUTE .STK-MED ONE Stop: 11/11/19 07:21 Nalbuphine HCl (Nubain) 5 mg IVPUSH Q3H PRN PRN Reason: Pruritis Stop: 11/12/19 08:27 Last Admin: 11/11/19 10:07 Dose: 5 mg Naloxone HCl (Narcan) 0.1 mg IVPUSH ONETIME PRN PRN Reason: Other Stop: 11/12/19 08:27 Octyl Cyanoacrylate (Dermabond Advance) Confirm Administered Dose 1 applic .ROUTE .STK-MED ONE Stop: 11/11/19 08:33 Ondansetron HCl (Zofran) Confirm Administered Dose 4 mg .ROUTE .STK-MED ONE Stop: 11/11/19 07:21 Oxytocin (Pitocin) Confirm Administered Dose 20 unit .ROUTE .STK-MED ONE Stop: 11/11/19 07:21 Oxytocin (Pitocin) Confirm Administered Dose 20 unit .ROUTE .STK-MED ONE Stop: 11/11/19 08:35 Phenylephrine HCl (Tera-Synephrine) Confirm Administered Dose 10 mg .ROUTE .STK- MED ONE Stop: 11/11/19 07:21 - Infant Interaction Support Person: - Recovery Exam Fundal Tone: Firm Fundal Level: 1 Fingerbreadths Below Umbilicus Fundal Placement: Midline Lochia Amount: Scant Lochia Color: Rubra/Red Perineum Description: Intact, Minimal Bruising/Swelling Episiotomy/Laceration: None Bladder Status: Voiding Urinary Elimination: Voided - Exam General: Alert, Oriented Lungs: Normal Respiratory Effort Cardiovascular: Regular Rate, Regular Rhythm GI/Abdominal Exam: Normal Bowel Sounds, Soft, Non-Tender Extremities: Pedal Edema (trace). No: Dalia's Sign Skin: Warm, Dry, Intact Wound/Incisions: Healing Well, No Drainage. No: Erythema Neurological: No New Focal Deficit Psy/Mental Status: Alert, Normal Affect, Normal Mood - Problem List & Annotations (1) S/P repeat low transverse SNOMED Code(s): 771292565, 66885876, 189796373, 385264937, 470678032 Code(s): Z98.891 - HISTORY OF UTERINE SCAR FROM PREVIOUS SURGERY Status: Acute Current Visit: Yes - Problem List Review Problem List Initiated/Reviewed/Updated: Yes - My Orders Last 24 Hours: My Active Orders 11/13/19 11:01 Ready for Discharge [RC] PER UNIT ROUTINE - Assessment Assessment:: POD 2 status post repeat c section - Plan Plan:: Discharge to home today. Discharge instructions reviewed. Follow up at [facility] 2 and 6 weeks. Doing well overall.
[2019-11-13 12:19] VITALS: BP 122/85; PULSE 98
[2019-11-13] MEDS ORDERED: Measles, Mumps & Rubella Vaccine 0.5 ML SDV SUBCUT ONE (12:44)
== END 2019-11-13 13:41 | disposition home or self-care (01) | DRG 788 ==
LOC: MW.OB 05:22
PROVIDERS: ADMIT Obstetrics & Gynecology; ATTEND Obstetrics & Gynecology
PROC: 10D00Z1 Extraction of Products of Conception, Low, Open Approach (ICD-10-PCS; principal; 2019-11-11)
PROC: 3E0234Z Introduction of Serum, Toxoid and Vaccine into Muscle, Percutaneous Approach (ICD-10-PCS; 2019-11-13)
DX: O82 Encounter for cesarean delivery without indication (principal); Z37.0 Single live birth; Z3A.38 38 weeks gestation of pregnancy; Z98.890 Other specified postprocedural states; Z23 Encounter for immunization
CPT/HCPCS: 36415; 51702; 82803; 85014; 85018; 85027; 86592; 86593; 86850; 86900; 86901; 90471; 90707; A9270-GY; J0690; J1200; J1885; J2270; J2300; J2370; J2405; J2590; J7120

== ENCOUNTER 2020-10-26 22:11 | Emergency (ER) | payer OTHER ==
--- NOTE | 2020-10-26 22:43 | EDM.PDOC ---
ED HPI GENERAL MEDICAL PROBLEM - General Chief Complaint: Skin Complaint Stated Complaint: RECURRING FISSULAS Time Seen by Provider: 10/26/20 22:29 - History of Present Illness INITIAL COMMENTS - FREE TEXT/NARRATIVE: HPI This patient with multiple procedures for prior rectal fissures has also had hemorrhoids in the past. Tonight she has excruciating pain. She took a picture of the perianal area. She has had some bleeding from there. The picture was taken an hour ago and shows some inflammation but no obvious thrombosed hemorrhoid. The pain is excruciating local in the perianal area and associated with bright red bleeding. She has had no BM for 2 and half days. [] Review of systems: As per history of present illness and below otherwise all systems reviewed and negative. Past medical history: As per history of present illness and as reviewed below otherwise noncontributory. Surgical history: As per history of present illness and as reviewed below otherwise noncontributory. Social history: No reported history of drug or alcohol abuse. Family history: As per history of present illness and as reviewed below otherwise noncontributory. Physical exam: Constitutional - well developed, well-nourished and in no acute distress HEENT - normocephalic, no evidence of trauma - external nose and mouth normal - no mass in neck and no JVD - mucosae moist EYES - full EOM, PERRL, no icterus - no evidence of inflammation, injection, or drainage Respiratory - no respiratory distress, equal bilateral expansion Rectal the perianal soft tissues has a thrombosed firm blueberry sized hemorrhoid at 2:00 on the anal entrance. On the picture from 1 hour ago it was not enlarged and engorged like this. It is exquisitely tender. Musculoskeletal no gross deformity of long bones or joints - no tenderness, swelling or edema Neurologic - Alert and oriented times four - CN II-XII grossly intact - motor sensory and coordination symmetrically normal Psychiatric - appropriate mood and affect with normal thought content Hematologic - No petechiae or purpura - mucosa appropriate color and sclera not pale - normal nail bed color and refill Integument - no rash or evidence of trauma - normal turgor Diagnostics: [] Therapeutics: [] Impression: [] Plan: [] Definitive disposition and diagnosis as appropriate pending reevaluation and review of above. Rectal Pain Score (Numeric/FACES): 7 - Related Data Allergies Allergy/AdvReac Type Severity Reaction Status Date / Time metronidazole Allergy Facial Verified 10/26/20 22:23 Swelling nitrofurantoin Allergy Facial Verified 10/26/20 22:23 [From Macrobid] Swelling Home Meds: Home Meds Desogestrel/Ethinyl Estradiol [Apri] 1 tab PO DAILY 10/26/20 [History] Ergocalciferol (Vitamin D2) [Vitamin D2] 1.25 mg PO DAILY 10/26/20 [History] Phentermine HCl 15 mg PO DAILY 10/26/20 [History] Past Medical History HEENT History: Reports: Other (See Below) Other HEENT History: wears glasses/contacts Cardiovascular History: Reports: None Respiratory History: Reports: None Other Respiratory History: hx asthma, as a child, sometimes still use an inhaler when sick. 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: Musculoskeletal History: Reports: None Neurological History: Reports: None Psychiatric History: Reports: None Other Psychiatric History: not on meds during Endocrine/Metabolic History: Reports: Obesity/BMI 30+ (BMI 51.3) Hematologic History: Reports: None Other Hematologic History: induced anemia Immunologic History: Reports: None Oncologic (Cancer) History: Reports: None Dermatologic History: Reports: None - Infectious Disease History Infectious Disease History: Reports: None - Past Surgical History Head Surgeries/Procedures: Reports: None HEENT Surgical History: Reports: Adenoidectomy, Tonsillectomy Cardiovascular Surgical History: Reports: None Respiratory Surgical History: Reports: None GI Surgical History: Reports: Other (See Below) Other GI Surgeries/Procedures: I&D of anal fistula x2 Female Surgical History: Reports: None Endocrine Surgical History: Reports: None Neurological Surgical History: Reports: None Musculoskeletal Surgical History: Reports: None Oncologic Surgical History: Reports: None Dermatological Surgical History: Reports: None - Past Imaging History Past Imaging History: Reports: CAT Scan Social & Family History - Family History Family Medical History: No Pertinent Family History - Tobacco Use Tobacco Use Status *Q: Never Tobacco User Second Hand Smoke Exposure: No - Caffeine Use Caffeine Use: Reports: Other Other Caffeine Use: none this - Recreational Drug Use Recreational Drug Use: No ED ROS GENERAL - Review of Systems Review Of Systems: Comprehensive ROS is negative, except as noted in HPI. ED EXAM, SKIN/RASH Exam: See Below Text/Narrative:: My physical exam is in the [facility] ED SKIN PROCEDURES - I&D Site: Anal entrance Skin Prep: Providone-Iodine (Betadine) Local Anesthesia - Bupivicaine (Marcaine): Other (Topical LAT) Area Incised With: 11 Blade Progress/Comments: After let was applied and the patient had obtained adequate anesthesia Betadine prep was done and the thrombosed hemorrhoid was incised with an 11 blade. A grapelike clot came out and it was hemostatic after that. Course - Vital Signs Last Recorded V/S: Last Vital Signs Temp 36.6 C 10/26/20 22:17 Pulse 101 H 10/26/20 22:17 Resp 18 10/26/20 22:17 BP 146/93 H 10/26/20 22:17 Pulse Ox 96 10/26/20 22:17 - Orders/Labs/Meds Meds: Medications Discontinued Medications Generic Name Dose Route Start Last Admin Trade Name Anila PRN Reason Stop Dose Admin Lidocaine/Tetracaine 5 ml 10/26/20 23:46 10/26/20 23:53 Lidocaine/Epinephrine/Tetracaine Soln 1 Ml TOP 10/26/20 23:47 2 ml ONETIME ONE Administration Departure - Departure Time of Disposition: 00:27 Disposition: Home, Self-Care 01 Condition: Good Clinical Impression: Thrombosed external hemorrhoid - Discharge Information Instructions: Hemorrhoids, [id number] Referrals: Tessa De La Cruz NP [Primary Care Provider] - Forms: ED Department Discharge Additional Instructions: Sits baths, baby wipes, constipation care with stool softeners and plenty of f luids. You can use hemorrhoid cream which is available [id number]. [facility] - General Surgery Professional Building [address] [place] [address], [address] [place] [address] The following information is given to patients seen in the emergency department who are being discharged to home. This information is to outline your options for follow-up care. We provide all patients seen in our emergency department with a follow-up referral. The need for follow-up, as well as the timing and circumstances, are variable depending upon the specifics of your emergency department visit. If you don't have a primary care physician on staff, we will provide you with a referral. We always advise you to contact your personal physician following an emergency department visit to inform them of the circumstance of the visit and for follow-up with them and/or the need for any referrals to a consulting specialist. The emergency department will also refer you to a specialist when appropriate. This referral assures that you have the opportunity for follow-up care with a specialist. All of these measure are taken in an effort to provide you with optimal care, which includes your follow-up. Under all circumstances we always encourage you to contact your private physician who remains a resource for coordinating your care. When calling for follow-up care, please make the office aware that this follow-up is from your recent emergency room visit. If for any reason you are refused follow-up, please contact the [facility] Emergency Department at and asked to speak to the emergency department charge nurse. Sepsis Event Note (ED) - Evaluation Sepsis Screening Result: No Definite Risk - Focused Exam Vital Signs: Vital Signs Temp Pulse Resp BP Pulse Ox 10/26/20 22:17 36.6 C 101 H 18 146/93 H 96
[2020-10-26] MEDS ORDERED: Lidocaine/EPINEPHrine/Tetracaine Soln 1 ML TOP ONE (23:46)
[2020-10-27 00:41] VITALS: BP 136/79; PULSE 91
== END 2020-10-27 00:35 | disposition home or self-care (01) ==
LOC: MW.ED 22:11
DX: K64.5 Perianal venous thrombosis (principal); J45.909 Unspecified asthma, uncomplicated; E66.9 Obesity, unspecified; Z68.43 Body mass index [BMI] 50.0-59.9, adult; Z88.1 Allergy status to other antibiotic agents; Z79.899 Other long term (current) drug therapy
CPT/HCPCS: 10060; 46083; 99282; 99283-25

== ENCOUNTER 2020-11-29 07:58 | Day surgery (SDC) | payer OTHER ==
[~2020-11-29 07:58] MED LIST changes: +Albuterol 0.083% 2.5 MG/3 ML Neb Soln NEB PRN; +Dexamethasone 4 MG/ML 5 ML MDV ONE; +HYDROmorphone 2 MG/ML Syringe IVPUSH PRN; +Metoclopramide 10 MG/2 ML SDV IVPUSH PRN; +Midazolam 1 MG/ML 2 ML SDV ONE; +Naloxone 0.4 MG/ML Syringe IVPUSH PRN; +Ondansetron 4 MG/2 ML SDV IVPUSH PRN; +Ondansetron 4 MG/2 ML SDV ONE; +Propofol 200 MG/20 ML SDV ONE; +Sodium Chloride 0.9% 10 ML SDV IV PRN; +cefOXitin 2 GM in Premix Bag 1 BAG IV ONE; +fentaNYL 100 MCG/2 ML SDV IVPUSH PRN; +fentaNYL 250 MCG/5 ML SDV ONE
[2020-11-29] MEDS ORDERED: cefOXitin 1 GM Vial ONE (08:43)
[2020-11-29] MEDS ORDERED: Sodium Chloride 0.9% 20 ML ONE (08:44)
[2020-11-29] MEDS ORDERED: Bupivacaine 0.5% 30 ML SDV ONE (09:16)
[2020-11-29] MEDS ORDERED: Lidocaine 2% Jelly 30 ML Tube ONE (09:17)
[2020-11-29] MEDS ORDERED: Bupivacaine Liposome 1.3% 20 ML SDV INFILT ONE (09:45)
[2020-11-29] MEDS ORDERED: Bupivacaine Liposome 1.3% 20 ML SDV ONE (09:45)
[2020-11-29] MEDS ORDERED: Ketorolac 30 MG/ML SDV ONE (09:58)
--- NOTE | 2020-11-29 10:10 | PCM.POSTAN ---
POST ANESTHESIA ASSESSMENT - MENTAL STATUS Mental Status: Alert, Oriented - VITAL SIGNS Vital Signs: Last Vital Signs Temp 96.8 F L 11/29/20 08:05 Pulse 104 H 11/29/20 08:05 Resp 15 11/29/20 08:05 BP 149/79 H 11/29/20 08:05 Pulse Ox 97 11/29/20 08:05 - RESPIRATORY Respiratory Status: Respiratory Rate WNL, Airway Patent, O2 Saturation Stable - CARDIOVASCULAR CV Status: Pulse Rate WNL, Blood Pressure Stable - GASTROINTESTINAL GI Status: No Symptoms - POST OP HYDRATION Hydration Status: Adequate & Stable
--- NOTE | 2020-11-29 10:11 | PCM.OPNOTE ---
- General Post-Op/Procedure Note Date of Surgery/Procedure: 11/29/20 Operative Procedure(s): Hemorrhoidectomy Findings: left posterior hemorrhoid Pre Op Diagnosis: Grade IV Hemorrhoid Post-Op Diagnosis: same Anesthesia Technique: MAC Primary Surgeon: Megan Johns ( ) Condition: Good
--- NOTE | 2020-11-29 10:33 | PCM.PREANE ---
Preanesthetic Assessment - Anesthesia/Transfusion/Family Hx Anesthesia History: Prior Anesthesia Without Reaction Transfusion History: No Prior Transfusion(s) Intubation History: Unknown - Review of Systems General: No Symptoms Pulmonary: No Symptoms Cardiovascular: No Symptoms Gastrointestinal: No Symptoms Neurological: No Symptoms Other: Reports: None - Physical Assessment Vital Signs: Last Vital Signs Temp 97.0 F 11/29/20 10:10 Pulse 72 11/29/20 10:25 Resp 15 11/29/20 10:25 BP 118/60 11/29/20 10:25 Pulse Ox 100 11/29/20 10:25 Height: 5 ft 6 in Weight: 294 lb Mental Status: Alert & Oriented x3 Dentition: Reports: Normal Dentition ROM/Head Extension: Full Lungs: Clear to Auscultation, Normal Respiratory Effort Cardiovascular: Regular Rate, Regular Rhythm - Lab Values: Laboratory Last Values Urine HCG, Qual NEGATIVE (NEGATIVE) 11/29/20 08:07 - Allergies Allergies/Adverse Reactions: Allergies Allergy/AdvReac Type Severity Reaction Status Date / Time metronidazole Allergy Tachycardia Verified 11/23/20 09:02 nitrofurantoin Allergy Swelling/fa Verified 11/23/20 09:02 [From Macrobid] tigue PreAnesthesia Questionnaire HEENT History: Reports: Allergic Rhinitis, Other (See Below) Other HEENT History: wears glasses/contacts Cardiovascular History: Reports: None Respiratory History: Reports: Asthma Other Respiratory History: allergy induced asthma Gastrointestinal History: Reports: Hemorrhoids, Other (See Below) Other Gastrointestinal History: hx anal fistula Genitourinary History: Reports: None 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: Musculoskeletal History: Reports: None Neurological History: Reports: None Psychiatric History: Reports: Depression Endocrine/Metabolic History: Reports: Obesity/BMI 30+ Hematologic History: Reports: Iron Deficiency Immunologic History: Reports: None Oncologic (Cancer) History: Reports: None Dermatologic History: Reports: None - Infectious Disease History Infectious Disease History: Reports: None - Past Surgical History Head Surgeries/Procedures: Reports: None HEENT Surgical History: Reports: Adenoidectomy, Tonsillectomy Cardiovascular Surgical History: Reports: None Respiratory Surgical History: Reports: None GI Surgical History: Reports: Other (See Below) Other GI Surgeries/Procedures: I&D of anal fistula x2 Female Surgical History: Reports: Section Endocrine Surgical History: Reports: None Neurological Surgical History: Reports: None Musculoskeletal Surgical History: Reports: None Oncologic Surgical History: Reports: None Dermatological Surgical History: Reports: None - Past Imaging History Past Imaging History: Reports: CAT Scan - SUBSTANCE USE Tobacco Use Status *Q: Never Tobacco User - HOME MEDS Home Medications: Home Meds Desogestrel/Ethinyl Estradiol [Apri] 1 tab PO DAILY 10/26/20 [History] Ergocalciferol (Vitamin D2) [Vitamin D2] 1.25 mg PO ASDIRECTED 10/26/20 [History] Phentermine HCl 15 mg PO DAILY 10/26/20 [History] Albuterol [Ventolin HFA] 1 - 2 puff INH ASDIRECTED PRN 11/23/20 [History] Fluticasone Propionate [Flonase Allergy Relief] 1 spray JAKE ASDIRECTED PRN 11/23/20 [History] Lidocaine 5% 35.44 gm .XX 6XDAY PRN #1 tube 11/29/20 [Rx] - CURRENT (IN HOUSE) MEDS Current Meds: Current Medications Albuterol (Albuterol 0.083% 2.5 Mg/3 Ml Neb Soln) 2.5 mg NEB ONETIME PRN PRN Reason: Wheezing Droperidol (Droperidol 5 Mg/2 Ml Sdv) 0.625 mg IVPUSH ONETIME PRN PRN Reason: Nausea/Vomiting Fentanyl (Fentanyl 100 Mcg/2 Ml Sdv) 50 mcg IVPUSH Q5M PRN PRN Reason: Pain (mild 1-3) Hydromorphone HCl (Hydromorphone 2 Mg/Ml Syringe) 0.5 mg IVPUSH Q10M PRN PRN Reason: Pain (moderate 4-6) Lactated Ringer's (Ringers, Lactated) 1,000 mls @ 125 mls/hr IV ASDIRECTED FLAKITO Last Admin: 11/29/20 08:15 Dose: 125 mls/hr Documented by: Metoclopramide HCl (Metoclopramide 10 Mg/2 Ml Sdv) 10 mg IVPUSH ONETIME PRN PRN Reason: Nausea/Vomiting Naloxone HCl (Naloxone 0.4 Mg/Ml Syringe) 0.1 mg IVPUSH ASDIRECTED PRN PRN Reason: Respiratory Depression Ondansetron HCl (Ondansetron 4 Mg/2 Ml Sdv) 4 mg IVPUSH ONETIME PRN PRN Reason: Nausea/Vomiting Sodium Chloride (Sodium Chloride 0.9% 2.5 Ml Syringe) 2.5 ml FLUSH ASDIRECTED PRN PRN Reason: Keep Vein Open Sodium Chloride (Sodium Chloride 0.9% 10 Ml Sdv) 10 ml IV ASDIRECTED PRN PRN Reason: IV Use Sodium Chloride (Sodium Chloride 0.9% 10 Ml Syringe) 10 ml FLUSH ASDIRECTED PRN PRN Reason: Keep Vein Open Discontinued Medications Bupivacaine HCl (Bupivacaine 0.5% 30 Ml Sdv) Confirm Administered Dose 30 ml .ROUTE .STK-MED ONE Stop: 11/29/20 09:17 Bupivacaine Liposome (Bupivacaine Liposome 1.3% 20 Ml Sdv) 10 ml INFILT ONETIME ONE Stop: 11/29/20 09:46 Cefoxitin Sodium (Cefoxitin 1 Gm Vial) Confirm Administered Dose 1 gm .ROUTE .STK-MED ONE Stop: 11/29/20 08:44 Dexamethasone (Dexamethasone 4 Mg/Ml 5 Ml Mdv) Confirm Administered Dose 20 mg .ROUTE .STK-MED ONE Stop: 11/29/20 07:32 Fentanyl (Fentanyl 250 Mcg/5 Ml Sdv) Confirm Administered Dose 250 mcg .ROUTE .STK-MED ONE Stop: 11/29/20 07:31 Cefoxitin Sodium 2 gm/ Premix 50 mls @ 100 mls/hr IV ONETIME ONE Stop: 11/26/20 09:40 Cefoxitin Sodium (Mefoxin In Dextrose,Iso-Osm 1 Gm/50 Ml) Confirm Administered Dose 50 mls @ as directed .ROUTE .STK-MED ONE Stop: 11/29/20 08:44 Sodium Chloride (Normal Saline) Confirm Administered Dose 20 mls @ as directed .ROUTE .STK-MED ONE Stop: 11/29/20 08:45 Ketorolac Tromethamine (Ketorolac 30 Mg/Ml Sdv) Confirm Administered Dose 30 mg .ROUTE .STK-MED ONE Stop: 11/29/20 09:59 Lidocaine HCl (Lidocaine 1% 5 Ml Sdv) Confirm Administered Dose 5 ml .ROUTE .STK-MED ONE Stop: 11/29/20 07:32 Lidocaine HCl (Lidocaine 2% Jelly 30 Ml Tube) Confirm Administered Dose 30 ml .ROUTE .STK-MED ONE Stop: 11/29/20 09:18 Midazolam HCl (Midazolam 1 Mg/Ml 2 Ml Sdv) Confirm Administered Dose 2 mg .ROUTE .STK-MED ONE Stop: 11/29/20 07:30 Ondansetron HCl (Ondansetron 4 Mg/2 Ml Sdv) Confirm Administered Dose 4 mg .ROUTE .STK-MED ONE Stop: 11/29/20 07:32 Propofol (Propofol 200 Mg/20 Ml Sdv) Confirm Administered Dose 200 mg .ROUTE .STK-MED ONE Stop: 11/29/20 07:30
[2020-11-29] MEDS ORDERED: Acetaminophen 1,000 MG in Premix Bag 1 BAG IV ONE (10:34)
--- NOTE | 2020-11-29 10:36 | PCM48HPAN ---
Post Anesthesia Note - EVALUATION WITHIN 48HRS OF ANESTHETIC Vital Signs in Normal Range: Yes Patient Participated in Evaluation: Yes Respiratory Function Stable: Yes Airway Patent: Yes Cardiovascular Function Stable: Yes Hydration Status Stable: Yes Pain Control Satisfactory: Yes Nausea and Vomiting Control Satisfactory: Yes Mental Status Recovered: Yes Vital Signs: Last Vital Signs Temp 97.0 F 11/29/20 10:10 Pulse 72 11/29/20 10:25 Resp 15 11/29/20 10:25 BP 118/60 11/29/20 10:25 Pulse Ox 100 11/29/20 10:25
[2020-11-29 12:25] VITALS: BP 137/72; PULSE 92
--- NOTE | 2020-11-30 15:00 | OR ---
SURGEON: MEGAN JOHNS MD DATE OF PROCEDURE: 11/29/2020 PREOPERATIVE DIAGNOSIS: Grade 4 hemorrhoid. POSTOPERATIVE DIAGNOSIS: Grade 4 hemorrhoid. PROCEDURE PERFORMED: Single column hemorrhoidectomy. PRIMARY SURGEON: Megan Johns MD ANESTHESIA: General LMA. FLUIDS: See Anesthesia record. ESTIMATED BLOOD LOSS: 10 mL. FINDINGS: Left posterior grade 4 hemorrhoid. COMPLICATIONS: None. INDICATIONS: The patient is a 25-year-old female who has a symptomatic grade 4 hemorrhoid. The patient and I discussed the need for hemorrhoidectomy. I explained the procedure, expected perioperative course, and the risks. She verbalized understanding and wishes to proceed. PROCEDURE IN DETAIL: The patient was brought into the OR and placed on her OR cart in supine position. A time-out was completed verifying the patient's name, age, date of , allergies, and procedure to be performed. General LMA anesthesia was induced. The patient was then placed into a left lateral decubitus position making sure to appropriately secure the patient to the cart and pad any bony prominences. The buttocks were then taped and prepped in usual standard fashion. A digital rectal exam was performed. The patient has known weakness of the anal sphincter. This was noted on my digital rectal exam. I could see a scar on the anterior anoderm from her previous surgery for a perianal fistula. On the posterior left side, the patient had a grade 4 hemorrhoid. A small anal retractor was put in place to expose this hemorrhoid. It was then grasped with a Lazara clamp. I elevated it and used a needle-tip cautery to excise the hemorrhoid from the surrounding tissue. It was removed and sent to Pathology, labeled as hemorrhoid. The mucosal defect was closed from inside the anal canal using a 2-0 chromic suture. Along the anal canal, a running locking stitch was performed. On the anoderm, it was transitioned to simple stitch. This was then stitched back upon itself and tied to the proximal suture line. Hemostasis was achieved. The anal canal and surrounding tissue were irrigated with normal saline. I then anesthetized around the anoderm circumferentially with 10 mL of Exparel. 4 x 4 fluffs and mesh underwear were applied. The patient tolerated the procedure well, was placed in supine position, extubated, and taken to PACU in stable condition. All counts were complete and correct at the end of the case. DANIEL / PATRICIO /[id number]
== END 2020-11-29 12:35 | disposition home or self-care (01) ==
LOC: MW.SDS 07:58
PROVIDERS: ATTEND Surgery
DX: K64.3 Fourth degree hemorrhoids (principal); E66.9 Obesity, unspecified; Z88.8 Allergy status to other drugs, medicaments and biological substances; Z79.899 Other long term (current) drug therapy; Z98.890 Other specified postprocedural states; Z68.42 Body mass index [BMI] 45.0-49.9, adult
CPT/HCPCS: 46255; 81025; 88304; J0131; J0694; J1100; J1170; J1885; J2250; J2704; J3010; J7120; 00902; J2405; J3490

== ENCOUNTER 2020-12-03 14:46 | Observation (INO) | payer OTHER ==
[2020-12-03] MEDS ORDERED: Sodium Chloride 0.9% 10 ML Syringe FLUSH PRN ×2 (16:50→16:57)
[2020-12-03] MEDS ORDERED: Sodium Chloride 0.9% 2.5 ML Syringe FLUSH PRN ×2 (16:50→16:57)
[2020-12-03] MEDS ORDERED: Sodium Chloride 0.9% 10 ML SDV IV PRN (16:57)
[2020-12-03] MEDS ORDERED: HYDROmorphone 1 MG/ML Syringe IVPUSH PRN (17:00)
--- NOTE | 2020-12-03 17:08 | EDM.PDOC ---
ED HPI GENERAL MEDICAL PROBLEM - General Chief Complaint: General Stated Complaint: PAINFUL REAR END Time Seen by Provider: 12/03/20 14:50 Source of Information: Reports: Patient History Limitations: Reports: No Limitations - History of Present Illness INITIAL COMMENTS - FREE TEXT/NARRATIVE: HISTORY AND PHYSICAL: History of present illness: Patient is a 25-year-old female presents to the emergency department with concern of worsening hemorrhoid pain. Patient reports that 4 days ago she had a hemorrhoidectomy performed by Dr. Johns, general surgery for thrombosed hemorrhoid. Patient reports that after the surgery she was doing well and needed minimal pain medication. Patient reports that yesterday morning around 10:00am she had a bowel movement without pain or any bleeding and the stool was soft according to patient. Patient reports that then yesterday evening she had a sudden and severe increase in pain without provocation and noticed the hemorrhoid had returned. Patient reports that she has not noticed any bleeding and has not had a bowel movement since the hemorrhoid returned. Patient states that she has been performing sitz bath's and applying a lidocaine ointment to the area with little relief. Patient states that this morning she called the surgeon's nurse and the nurse had a refill in her pain medication called in. Patient states that she believes there was a miscommunication between her and the surgeons nurse who stated that the patient was probably just behind in her pain control, but the patient states that she does not believe this is correct as she was doing well and having minimal pain without taking prescribed pain medications. She notes since this AM to now the hemorrhoid has increased in size quickly and is now bigger than when she had surgery on it 4 days ago. Patient denies fever, chills, chest pain, shortness of breath, or cough. Denies headache, neck stiff ness, change in vision, syncope, or near syncope. Denies nausea, vomiting, abdominal pain, diarrhea, constipation, or dysuria. Has not noted any blood in urine or stool. Patient has been eating and drinking appropriately. Review of systems: As per history of present illness and below otherwise all systems reviewed and negative. Past medical history: As per history of present illness and as reviewed below otherwise noncontributory. Surgical history: As per history of present illness and as reviewed below otherwise noncontributory. Social history: See social history for further information Family history: As per history of present illness and as reviewed below otherwise noncontributory. Physical exam: General: Patient is alert, oriented, and in no acute distress. Patient laying comfortably on exam table. Patient's vitals are stable and reviewed by me. HEENT: Atraumatic, normocephalic, pupils equal and reactive bilaterally, negative for conjunctival pallor or scleral icterus, mucous membranes moist, TMs normal bilaterally, throat clear, neck supple, nontender, trachea midline. No drooling or trismus noted. No meningeal signs. No hot potato voice noted. Lungs: Clear to auscultation, breath sounds equal bilaterally, chest nontender. Heart: S1S2, regular rate and rhythm without overt murmur Abdomen: Soft, nondistended, nontender. Negative for masses or hepatosplenomegaly. Negative for costovertebral tenderness. Pelvis: Stable nontender. Genitourinary: Deferred. Rectal: Rectal exam performed by PA student Jose D Hart observed and supervised directly by me. There is a 2 x 2 centimeter hemorrhoid protruding from the rectum in the 9 o'clock position which is very tender and has some overlying and surrounding ecchymosis there is no visible blood leaking from around the mass or rectum. Skin: Intact, warm, dry. No lesions or rashes noted. Extremities: Atraumatic, negative for cords or calf pain. Neurovascular unremarkable. Neuro: Awake, alert, oriented. Cranial nerves II through XII unremarkable. Cerebellum unremarkable. Motor and sensory unremarkable throughout. Exam nonfocal. Notes: Placed a call to on-call provider for general surgery and spoke with Dr. Eden. Dr. Eden suggested that since Dr. Johns was still in clinic to see if she was able to consult or come see the patient. Placed a call with Dr. Johns and she agreed to come see the patient emergency department. Dr. Johns has come into personally see and evaluate the patient. Dr. Johns, general surgery, would like to admit patient to observation. Voices understanding and is agreeable to plan of care. Denies any further questions or concerns at this time. Diagnostics: CBC Therapeutics: None Impression: Thrombosed hemorrhoid Plan: Admit for observation to Dr. Johns, general surgery. Definitive disposition and diagnosis as appropriate pending reevaluation and review of above. anus Pain Score (Numeric/FACES): 7 - Related Data Allergies Allergy/AdvReac Type Severity Reaction Status Date / Time metronidazole Allergy Tachycardia Verified 12/03/20 15:08 nitrofurantoin Allergy Swelling/fa Verified 12/03/20 15:08 [From Macrobid] tigue Home Meds: Home Meds Desogestrel/Ethinyl Estradiol [Apri] 1 tab PO DAILY 10/26/20 [History] Ergocalciferol (Vitamin D2) [Vitamin D2] 1.25 mg PO ASDIRECTED 10/26/20 [History] Phentermine HCl 15 mg PO DAILY 10/26/20 [History] Albuterol [Ventolin HFA] 1 - 2 puff INH ASDIRECTED PRN 11/23/20 [History] Fluticasone Propionate [Flonase Allergy Relief] 1 spray JAKE ASDIRECTED PRN 11/23/20 [History] Lidocaine 5% 35.44 gm .XX 6XDAY PRN #1 tube 11/29/20 [Rx] Past Medical History HEENT History: Reports: Allergic Rhinitis, Other (See Below) Other HEENT History: wears glasses/contacts Cardiovascular History: Reports: None Respiratory History: Reports: Asthma Other Respiratory History: allergy induced asthma Gastrointestinal History: Reports: Hemorrhoids, Other (See Below) Other Gastrointestinal History: hx anal fistula Genitourinary History: Reports: None 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: Musculoskeletal History: Reports: None Neurological History: Reports: None Psychiatric History: Reports: Depression Other Psychiatric History: not on meds during Endocrine/Metabolic History: Reports: Obesity/BMI 30+ Hematologic History: Reports: Iron Deficiency Other Hematologic History: induced anemia Immunologic History: Reports: None Oncologic (Cancer) History: Reports: None Dermatologic History: Reports: None - Infectious Disease History Infectious Disease History: Reports: None - Past Surgical History Head Surgeries/Procedures: Reports: None HEENT Surgical History: Reports: Adenoidectomy, Tonsillectomy Cardiovascular Surgical History: Reports: None Respiratory Surgical History: Reports: None GI Surgical History: Reports: Colonoscopy, Other (See Below) Other GI Surgeries/Procedures: I&D of anal fistula x2 Female Surgical History: Reports: Section Endocrine Surgical History: Reports: None Neurological Surgical History: Reports: None Musculoskeletal Surgical History: Reports: None Oncologic Surgical History: Reports: None Dermatological Surgical History: Reports: None - Past Imaging History Past Imaging History: Reports: CAT Scan Social & Family History - Family History Family Medical History: No Pertinent Family History - Tobacco Use Tobacco Use Status *Q: Never Tobacco User Second Hand Smoke Exposure: No - Caffeine Use Caffeine Use: Reports: None Other Caffeine Use: none this - Recreational Drug Use Recreational Drug Use: No ED ROS GENERAL - Review of Systems Review Of Systems: Comprehensive ROS is negative, except as noted in HPI. ED EXAM, GENERAL - Physical Exam Exam: See Below (see dictation) Course - Vital Signs Last Recorded V/S: Last Vital Signs Temp 98.2 F 12/03/20 17:25 Pulse 88 12/03/20 17:25 Resp 18 12/03/20 17:25 BP 135/77 12/03/20 17:25 Pulse Ox 98 12/03/20 17:25 - Orders/Labs/Meds Orders: Active Orders 24 hr Category Date Time Status Sodium Chloride 0.9% [Saline Flush] Med 12/03/20 16:50 Active 10 ml FLUSH ASDIRECTED PRN Sodium Chloride 0.9% [Saline Flush] Med 12/03/20 16:50 Active 2.5 ml FLUSH ASDIRECTED PRN Saline Lock Insert [OM.PC] Stat Oth 12/03/20 16:51 Ordered Medication Orders Hydrocodone Bitart/Acetaminophen (Acetaminophen/Hydrocodone 325-5 Mg Tab) 2 tab PO Q4H PRN PRN Reason: MODERATE PAIN Hydromorphone HCl (Hydromorphone 1 Mg/Ml Syringe) 0.5 mg IVPUSH Q1H PRN PRN Reason: Pain (severe 7-10) Lactated Ringer's (Ringers, Lactated) 1,000 mls @ 100 mls/hr IV ASDIRECTED FLAKITO Last Admin: 12/03/20 17:20 Dose: 100 mls/hr Documented by: CE Ketorolac Tromethamine (Ketorolac 30 Mg/Ml Sdv) 30 mg IVPUSH Q6H FLAKITO Stop: 12/04/20 11:16 Last Admin: 12/03/20 17:20 Dose: 30 mg Documented by: CE Sodium Chloride (Sodium Chloride 0.9% 10 Ml Syringe) 10 ml FLUSH ASDIRECTED PRN PRN Reason: Keep Vein Open Sodium Chloride (Sodium Chloride 0.9% 2.5 Ml Syringe) 2.5 ml FLUSH ASDIRECTED PRN PRN Reason: Keep Vein Open Sodium Chloride (Sodium Chloride 0.9% 10 Ml Syringe) 10 ml FLUSH ASDIRECTED PRN PRN Reason: Keep Vein Open Sodium Chloride (Sodium Chloride 0.9% 2.5 Ml Syringe) 2.5 ml FLUSH ASDIRECTED PRN PRN Reason: Keep Vein Open Sodium Chloride (Sodium Chloride 0.9% 10 Ml Sdv) 10 ml IV ASDIRECTED PRN PRN Reason: IV Use Meds: Medications Generic Name Dose Route Start Last Admin Trade Name Freq PRN Reason Stop Dose Admin Hydrocodone Bitart/Acetaminophen 2 tab 12/03/20 17:08 Acetaminophen/Hydrocodone 325-5 Mg Tab PO Q4H PRN MODERATE PAIN Hydromorphone HCl 0.5 mg 12/03/20 17:00 Hydromorphone 1 Mg/Ml Syringe IVPUSH Q1H PRN Pain (severe 7-10) Lactated Ringer's 1,000 mls @ 100 mls/hr 12/03/20 17:00 12/03/20 17:20 Ringers, Lactated IV 100 mls/hr ASDIRECTED FLAKITO Administration Ketorolac Tromethamine 30 mg 12/03/20 17:15 12/03/20 17:20 Ketorolac 30 Mg/Ml Sdv IVPUSH 12/04/20 11:16 30 mg Q6H FLAKITO Administration Sodium Chloride 10 ml 12/03/20 16:50 Sodium Chloride 0.9% 10 Ml Syringe FLUSH ASDIRECTED PRN Keep Vein Open Sodium Chloride 2.5 ml 12/03/20 16:50 Sodium Chloride 0.9% 2.5 Ml Syringe FLUSH ASDIRECTED PRN Keep Vein Open Sodium Chloride 10 ml 12/03/20 16:57 Sodium Chloride 0.9% 10 Ml Syringe FLUSH ASDIRECTED PRN Keep Vein Open Sodium Chloride 2.5 ml 12/03/20 16:57 Sodium Chloride 0.9% 2.5 Ml Syringe FLUSH ASDIRECTED PRN Keep Vein Open Sodium Chloride 10 ml 12/03/20 16:57 Sodium Chloride 0.9% 10 Ml Sdv IV ASDIRECTED PRN IV Use Departure - Departure Time of Disposition: 17:53 Disposition: Refer to Observation Clinical Impression: Thrombosed hemorrhoids - Discharge Information Sepsis Event Note (ED) - Evaluation Sepsis Screening Result: No Definite Risk - Focused Exam Vital Signs: Vital Signs Temp Pulse Resp BP Pulse Ox 12/03/20 16:00 98.2 F 91 18 118/72 98 12/03/20 15:03 97.7 F 84 18 118/68 98 - My Orders Last 24 Hours: My Active Orders 12/03/20 16:50 Sodium Chloride 0.9% [Saline Flush] 10 ml FLUSH ASDIRECTED PRN Sodium Chloride 0.9% [Saline Flush] 2.5 ml FLUSH ASDIRECTED PRN 12/03/20 16:51 Saline Lock Insert [OM.PC] Stat - Assessment/Plan Last 24 Hours: My Active Orders 12/03/20 16:50 Sodium Chloride 0.9% [Saline Flush] 10 ml FLUSH ASDIRECTED PRN Sodium Chloride 0.9% [Saline Flush] 2.5 ml FLUSH ASDIRECTED PRN 12/03/20 16:51 Saline Lock Insert [OM.PC] Stat
[2020-12-03] MEDS: Lactated Ringers 1,000 ML IV SCH (17:20)
[2020-12-03] MEDS: Ketorolac 30 MG/ML SDV IVPUSH SCH ×2 (17:20→23:54)
--- NOTE | 2020-12-03 17:22 | PCM.HP.2 ---
H&P History of Present Illness - General Date of Service: 12/03/20 Admit Problem/Dx: Admission Diagnosis/Problem Admission Diagnosis/Problem Prolapsed hemorrhoids Source of Information: Patient History Limitations: Reports: No Limitations - History of Present Illness Initial Comments - Free Text/Narative: Patient is a 25 year old female who is POD #4 from a hemorrhoidectomy. She states that she was very comfortable and felt well until late last evening. She developed an enlarging mass that today has doubled in size. It is painful, swollen and extremely tender. She called my office and was given different pain medications, however her pain was too much and she presented to the ER. She denies fevers or chills. She states her BMs have been soft. She has been following her postoperative plan very closely. She denies BRBPR. Her CBC was unremarkable. anus Pain Score (Numeric/FACES): 7 - Related Data Allergies/Adverse Reactions: Allergies Allergy/AdvReac Type Severity Reaction Status Date / Time metronidazole Allergy Tachycardia Verified 12/03/20 15:08 nitrofurantoin Allergy Swelling/fa Verified 12/03/20 15:08 [From Macrobid] tigue Home Medications: Home Meds Desogestrel/Ethinyl Estradiol [Apri] 1 tab PO DAILY 10/26/20 [History] Ergocalciferol (Vitamin D2) [Vitamin D2] 1.25 mg PO ASDIRECTED 10/26/20 [History] Phentermine HCl 15 mg PO DAILY 10/26/20 [History] Albuterol [Ventolin HFA] 1 - 2 puff INH ASDIRECTED PRN 11/23/20 [History] Fluticasone Propionate [Flonase Allergy Relief] 1 spray JAKE ASDIRECTED PRN 11/23/20 [History] Lidocaine 5% 35.44 gm .XX 6XDAY PRN #1 tube 11/29/20 [Rx] Past Medical History HEENT History: Reports: Allergic Rhinitis, Other (See Below) Other HEENT History: wears glasses/contacts Cardiovascular History: Reports: None Respiratory History: Reports: Asthma Other Respiratory History: allergy induced asthma Gastrointestinal History: Reports: Hemorrhoids, Other (See Below) Other Gastrointestinal History: hx anal fistula Genitourinary History: Reports: None 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: Musculoskeletal History: Reports: None Neurological History: Reports: None Psychiatric History: Reports: Depression Other Psychiatric History: not on meds during Endocrine/Metabolic History: Reports: Obesity/BMI 30+ Hematologic History: Reports: Iron Deficiency Other Hematologic History: induced anemia Immunologic History: Reports: None Oncologic (Cancer) History: Reports: None Dermatologic History: Reports: None - Infectious Disease History Infectious Disease History: Reports: None - Past Surgical History Head Surgeries/Procedures: Reports: None HEENT Surgical History: Reports: Adenoidectomy, Tonsillectomy Cardiovascular Surgical History: Reports: None Respiratory Surgical History: Reports: None GI Surgical History: Reports: Colonoscopy, Other (See Below) Other GI Surgeries/Procedures: I&D of anal fistula x2 Female Surgical History: Reports: Section Endocrine Surgical History: Reports: None Neurological Surgical History: Reports: None Musculoskeletal Surgical History: Reports: None Oncologic Surgical History: Reports: None Dermatological Surgical History: Reports: None - Past Imaging History Past Imaging History: Reports: CAT Scan Social & Family History - Family History Family Medical History: No Pertinent Family History - Tobacco Use Tobacco Use Status *Q: Never Tobacco User Second Hand Smoke Exposure: No - Caffeine Use Caffeine Use: Reports: None Other Caffeine Use: none this - Recreational Drug Use Recreational Drug Use: No H&P Review of Systems - Review of Systems: Review Of Systems: Comprehensive ROS is negative, except as noted in HPI. Exam - Exam Exam: See Below - Vital Signs Vital Signs: Last Vital Signs Temp 36.8 C 12/03/20 16:00 Pulse 91 12/03/20 16:00 Resp 18 12/03/20 16:00 BP 118/72 12/03/20 16:00 Pulse Ox 98 12/03/20 16:00 Weight: 129.274 kg - Exam General: Alert, Oriented, Mild Distress HEENT: Conjunctiva Clear, Mucosa Moist & [place], Posterior Pharynx Clear Lungs: Clear to Auscultation, Normal Respiratory Effort Cardiovascular: Regular Rate, Regular Rhythm GI/Abdominal Exam: Soft, Non-Tender, No Distention Rectal (Female) Exam: Other (Prolapsed posterior hemorrhoid that appears thrombosed and partially necrotic. Unable to perform a MAN due to pain. ) - Patient Data Lab Results Last 24 hrs: Laboratory Results - last 24 hr 12/03/20 Range/Units 17:09 WBC 7.10 (4.0-11.0) K/uL RBC 5.09 (4.30-5.90) M/uL Hgb 13.7 (12.0-16.0) g/dL Hct 41.8 (36.0-46.0) % MCV 82.1 (80.0-98.0) fL MCH 26.9 L (27.0-32.0) pg MCHC 32.8 (31.0-37.0) g/dL RDW Std Deviation 45.9 (28.0-62.0) fl RDW Coeff of Ursula 15 (11.0-15.0) % Plt Count 359 (150-400) K/uL MPV 10.30 (7.40-12.00) fL Neut % (Auto) 54.9 (48.0-80.0) % Lymph % (Auto) 35.2 (16.0-40.0) % [place] % (Auto) 8.3 (0.0-15.0) % Eos % (Auto) 1.3 (0.0-7.0) % Baso % (Auto) 0.3 (0.0-1.5) % Neut # (Auto) 3.9 (1.4-5.7) K/uL Lymph # (Auto) 2.5 H (0.6-2.4) K/uL [place] # (Auto) 0.6 (0.0-0.8) K/uL Eos # (Auto) 0.1 (0.0-0.7) K/uL Baso # (Auto) 0.0 (0.0-0.1) K/uL Nucleated RBC % 0.0 /100WBC Nucleated RBCs # 0 K/uL Result Diagrams: 12/03/20 17:09 Sepsis Event Note - Evaluation Sepsis Screening Result: No Definite Risk - Focused Exam Vital Signs: Vital Signs Temp Pulse Resp BP Pulse Ox 12/03/20 16:00 36.8 C 91 18 118/72 98 12/03/20 15:03 36.5 C 84 18 118/68 98 - Problem List (1) Thrombosed grade IV hemorrhoid SNOMED Code(s): 74609037362008799 ICD Code: K64.3 - FOURTH DEGREE HEMORRHOIDS Status: Acute Current Visit: Yes Problem List Initiated/Reviewed/Updated: Yes Orders Last 24hrs: Active Orders 24 hr Category Date Time Status Patient Status [ADT] Routine ADT 12/03/20 16:57 Active May Shower [RC] ASDIRECTED Care 12/03/20 16:57 Active Oxygen Therapy [RC] PRN Care 12/03/20 16:57 Active Oxygen Therapy [RC] PRN Care 12/03/20 17:01 Active RT Incentive Spirometry [RC] Q1HWA Care 12/03/20 16:57 Active Up ad Shyanne [RC] ASDIRECTED Care 12/03/20 16:57 Active Vital Signs [RC] PER UNIT ROUTINE Care 12/03/20 17:01 Active NPO After Midnight [Nothing per Oral After Midnight Diet 12/04/20 Breakfast Ordered Diet] [DIET] Regular Diet [DIET] Diet 12/03/20 Dinner Active CORONAVIRUS COVID-19 NAIMA [MOLEC] Stat Lab 12/03/20 16:51 Ordered Acetaminophen/HYDROcodone [[place] 325-5 MG] Med 12/03/20 17:08 Active 2 tab PO Q4H PRN HYDROmorphone [Dilaudid] Med 12/03/20 17:00 Active 0.5 mg IVPUSH Q1H PRN Ketorolac [Toradol] Med 12/03/20 17:15 Active 30 mg IVPUSH Q6H Lactated Ringers [Ringers, Lactated] 1,000 ml Med 12/03/20 17:00 Active IV ASDIRECTED Sodium Chloride 0.9% [Normal Saline] Med 12/03/20 16:57 Active 10 ml IV ASDIRECTED PRN Sodium Chloride 0.9% [Saline Flush] Med 12/03/20 16:50 Active 10 ml FLUSH ASDIRECTED PRN Sodium Chloride 0.9% [Saline Flush] Med 12/03/20 16:57 Active 10 ml FLUSH ASDIRECTED PRN Sodium Chloride 0.9% [Saline Flush] Med 12/03/20 16:50 Active 2.5 ml FLUSH ASDIRECTED PRN Sodium Chloride 0.9% [Saline Flush] Med 12/03/20 16:57 Active 2.5 ml FLUSH ASDIRECTED PRN Peripheral IV Insertion Adult [OM.PC] Urgent Oth 12/03/20 16:57 Ordered Saline Lock Insert [OM.PC] Stat Oth 12/03/20 16:51 Ordered Resuscitation Status Routine Resus Stat 12/03/20 16:57 Ordered Medication Orders Hydrocodone Bitart/Acetaminophen (Acetaminophen/Hydrocodone 325-5 Mg Tab) 2 tab PO Q4H PRN PRN Reason: MODERATE PAIN Hydromorphone HCl (Hydromorphone 1 Mg/Ml Syringe) 0.5 mg IVPUSH Q1H PRN PRN Reason: Pain (severe 7-10) Lactated Ringer's (Ringers, Lactated) 1,000 mls @ 100 mls/hr IV ASDIRECTED FLAKITO Ketorolac Tromethamine (Ketorolac 30 Mg/Ml Sdv) 30 mg IVPUSH Q6H FLAKITO Stop: 12/04/20 11:16 Sodium Chloride (Sodium Chloride 0.9% 10 Ml Syringe) 10 ml FLUSH ASDIRECTED PRN PRN Reason: Keep Vein Open Sodium Chloride (Sodium Chloride 0.9% 2.5 Ml Syringe) 2.5 ml FLUSH ASDIRECTED PRN PRN Reason: Keep Vein Open Sodium Chloride (Sodium Chloride 0.9% 10 Ml Syringe) 10 ml FLUSH ASDIRECTED PRN PRN Reason: Keep Vein Open Sodium Chloride (Sodium Chloride 0.9% 2.5 Ml Syringe) 2.5 ml FLUSH ASDIRECTED PRN PRN Reason: Keep Vein Open Sodium Chloride (Sodium Chloride 0.9% 10 Ml Sdv) 10 ml IV ASDIRECTED PRN PRN Reason: IV Use Assessment/Plan Comment:: The patient likely bled into an adjacent hemorrhoid which subsequently prolapsed or some swollen tissue adjacent to her hemorrhoidectomy site prolapsed and became thrombosed. I will take her to the OR tomorrow for an exam under anesthesia and possible excision of this thrombosed tissue vs clot evacuation. We discussed the procedure, expected greg-operative course and the risks including bleeding, infection or damage to surrounding structures resulting in alteration of continence she verbalized understanding and wishes to proceed. In the meantime, I will admit her overnight for pain control. NPO after midnight. No need for antibiotics at this time. Will need pre-operative antibiotics alone.
[2020-12-03] MEDS: Acetaminophen/HYDROcodone 325-5 MG Tab PO PRN (18:46)
[2020-12-03] MEDS ORDERED: Docusate Sodium 100 MG Cap PO ONE (23:09)
[2020-12-04] MEDS: Acetaminophen/HYDROcodone 325-5 MG Tab PO PRN (00:06)
[2020-12-04] MEDS: Lactated Ringers 1,000 ML IV SCH (03:38)
[2020-12-04] MEDS: Ketorolac 30 MG/ML SDV IVPUSH SCH ×2 (05:28→15:03)
[2020-12-04] MEDS ORDERED: Scopolamine 1.5 MG Transdermal Patch TRDERM ONE (07:55)
[2020-12-04] MEDS ORDERED: Albuterol 0.083% 2.5 MG/3 ML Neb Soln NEB PRN (07:55)
[2020-12-04] MEDS ORDERED: HYDROmorphone 2 MG/ML Syringe IVPUSH PRN (07:55)
[2020-12-04] MEDS ORDERED: Ondansetron 4 MG/2 ML SDV IVPUSH PRN (07:55)
[2020-12-04] MEDS ORDERED: fentaNYL 100 MCG/2 ML SDV IVPUSH PRN (07:55)
[2020-12-04] MEDS ORDERED: Naloxone 0.4 MG/ML Syringe IVPUSH PRN (07:55)
[2020-12-04] MEDS ORDERED: Metoclopramide 10 MG/2 ML SDV IVPUSH PRN (07:55)
--- NOTE | 2020-12-04 08:20 | PCM.PREANE ---
Preanesthetic Assessment - Anesthesia/Transfusion/Family Hx Anesthesia History: Prior Anesthesia Without Reaction Family History of Anesthesia Reaction: No Transfusion History: Prior Transfusion Without Reaction Intubation History: Unknown - Review of Systems General: No Symptoms Pulmonary: No Symptoms Cardiovascular: No Symptoms Gastrointestinal: No Symptoms Neurological: No Symptoms Other: Reports: None - Physical Assessment NPO Status Date: 12/04/20 NPO Status Time: 00:00 Vital Signs: Last Vital Signs Temp 97 F 12/04/20 03:36 Pulse 77 12/04/20 03:36 Resp 16 12/04/20 03:36 BP 124/58 L 12/04/20 03:36 Pulse Ox 97 12/04/20 03:36 Height: 5 ft 6 in Weight: 295 lb 3.2 oz ASA Class: 2 Mental Status: Alert & Oriented x3 Airway Class: Mallampati = 2 Dentition: Reports: Normal Dentition Thyro-Mental Finger Breadths: 3 Mouth Opening Finger Breadths: 3 ROM/Head Extension: Full Lungs: Clear to Auscultation, Normal Respiratory Effort Cardiovascular: Regular Rate, Regular Rhythm - Lab Values: Laboratory Last Values WBC 7.10 K/uL (4.0-11.0) 12/03/20 17:09 RBC 5.09 M/uL (4.30-5.90) 12/03/20 17:09 Hgb 13.7 g/dL (12.0-16.0) 12/03/20 17:09 Hct 41.8 % (36.0-46.0) 12/03/20 17:09 MCV 82.1 fL (80.0-98.0) 12/03/20 17:09 MCH 26.9 pg (27.0-32.0) L 12/03/20 17:09 MCHC 32.8 g/dL (31.0-37.0) 12/03/20 17:09 RDW Std Deviation 45.9 fl (28.0-62.0) 12/03/20 17:09 RDW Coeff of Ursula 15 % (11.0-15.0) 12/03/20 17:09 Plt Count 359 K/uL (150-400) 12/03/20 17:09 MPV 10.30 fL (7.40-12.00) 12/03/20 17:09 Neut % (Auto) 54.9 % (48.0-80.0) 12/03/20 17:09 Lymph % (Auto) 35.2 % (16.0-40.0) 12/03/20 17:09 [place] % (Auto) 8.3 % (0.0-15.0) 12/03/20 17:09 Eos % (Auto) 1.3 % (0.0-7.0) 12/03/20 17:09 Baso % (Auto) 0.3 % (0.0-1.5) 12/03/20 17:09 Neut # (Auto) 3.9 K/uL (1.4-5.7) 12/03/20 17:09 Lymph # (Auto) 2.5 K/uL (0.6-2.4) H 12/03/20 17:09 [place] # (Auto) 0.6 K/uL (0.0-0.8) 12/03/20 17:09 Eos # (Auto) 0.1 K/uL (0.0-0.7) 12/03/20 17:09 Baso # (Auto) 0.0 K/uL (0.0-0.1) 12/03/20 17:09 Nucleated RBC % 0.0 /100WBC 12/03/20 17:09 Nucleated RBCs # 0 K/uL 12/03/20 17:09 - Allergies Allergies/Adverse Reactions: Allergies Allergy/AdvReac Type Severity Reaction Status Date / Time metronidazole Allergy Tachycardia Verified 12/03/20 19:02 nitrofurantoin Allergy Swelling/fa Verified 12/03/20 19:02 [From Macrobid] tigue - Blood Blood Available: No - Acknowledgements Anesthesia Type Planned: Spinal, MAC Pt an Appropriate Candidate for the Planned Anesthesia: Yes Alternatives and Risks of Anesthesia Discussed w Pt/Guardian: Yes Pt/Guardian Understands and Agrees with Anesthesia Plan: Yes PreAnesthesia Questionnaire HEENT History: Reports: Allergic Rhinitis, Other (See Below) Other HEENT History: wears glasses/contacts Cardiovascular History: Reports: None Respiratory History: Reports: Asthma Other Respiratory History: allergy induced asthma Gastrointestinal History: Reports: Hemorrhoids, Other (See Below) Other Gastrointestinal History: hx anal fistula Genitourinary History: Reports: None [employer] DIRECTOR History: Reports: Musculoskeletal History: Reports: None Neurological History: Reports: None Psychiatric History: Reports: Depression Other Psychiatric History: not on meds during Endocrine/Metabolic History: Reports: Obesity/BMI 30+ Hematologic History: Reports: Iron Deficiency Other Hematologic History: induced anemia Immunologic History: Reports: None Oncologic (Cancer) History: Reports: None Dermatologic History: Reports: None - Infectious Disease History Infectious Disease History: Reports: None - Past Surgical History Head Surgeries/Procedures: Reports: None HEENT Surgical History: Reports: Adenoidectomy, Tonsillectomy Cardiovascular Surgical History: Reports: None Respiratory Surgical History: Reports: None GI Surgical History: Reports: Colonoscopy, Other (See Below) Other GI Surgeries/Procedures: I&D of anal fistula x2 Female Surgical History: Reports: Section Endocrine Surgical History: Reports: None Neurological Surgical History: Reports: None Musculoskeletal Surgical History: Reports: None Oncologic Surgical History: Reports: None Dermatological Surgical History: Reports: None - Past Imaging History Past Imaging History: Reports: CAT Scan - SUBSTANCE USE Tobacco Use Status *Q: Never Tobacco User Second Hand Smoke Exposure: No Recreational Drug Use History: No - HOME MEDS Home Medications: Home Meds Desogestrel/Ethinyl Estradiol [Apri] 1 tab PO DAILY 10/26/20 [History] Ergocalciferol (Vitamin D2) [Vitamin D2] 1.25 mg PO ASDIRECTED 10/26/20 [History] Phentermine HCl 15 mg PO DAILY 10/26/20 [History] Albuterol [Ventolin HFA] 1 - 2 puff INH ASDIRECTED PRN 11/23/20 [History] Fluticasone Propionate [Flonase Allergy Relief] 1 spray JAKE ASDIRECTED PRN 11/23/20 [History] Lidocaine 5% 35.44 gm .XX 6XDAY PRN #1 tube 11/29/20 [Rx] - CURRENT (IN HOUSE) MEDS Current Meds: Current Medications Hydrocodone Bitart/Acetaminophen (Acetaminophen/Hydrocodone 325-5 Mg Tab) 2 tab PO Q4H PRN PRN Reason: MODERATE PAIN Last Admin: 12/04/20 00:06 Dose: 2 tab Documented by: Albuterol (Albuterol 0.083% 2.5 Mg/3 Ml Neb Soln) 2.5 mg NEB ONETIME PRN PRN Reason: Wheezing Droperidol (Droperidol 5 Mg/2 Ml Sdv) 0.625 mg IVPUSH ONETIME PRN PRN Reason: Nausea/Vomiting Fentanyl (Fentanyl 100 Mcg/2 Ml Sdv) 50 mcg IVPUSH Q5M PRN PRN Reason: Pain (mild 1-3) Hydromorphone HCl (Hydromorphone 1 Mg/Ml Syringe) 0.5 mg IVPUSH Q1H PRN PRN Reason: Pain (severe 7-10) Last Admin: 12/03/20 22:09 Dose: 0.5 mg Documented by: Hydromorphone HCl (Hydromorphone 2 Mg/Ml Syringe) 0.5 mg IVPUSH Q10M PRN PRN Reason: Pain (moderate 4-6) Lactated Ringer's (Ringers, Lactated) 1,000 mls @ 100 mls/hr IV ASDIRECTED [facility] Last Admin: 12/04/20 03:38 Dose: 100 mls/hr Documented by: Ketorolac Tromethamine (Ketorolac 30 Mg/Ml Sdv) 30 mg IVPUSH Q6H [facility] Stop: 12/04/20 11:16 Last Admin: 12/04/20 05:28 Dose: 30 mg Documented by: Metoclopramide HCl (Metoclopramide 10 Mg/2 Ml Sdv) 10 mg IVPUSH ONETIME PRN PRN Reason: Nausea/Vomiting Naloxone HCl (Naloxone 0.4 Mg/Ml Syringe) 0.1 mg IVPUSH ASDIRECTED PRN PRN Reason: Respiratory Depression Ondansetron HCl (Ondansetron 4 Mg/2 Ml Sdv) 4 mg IVPUSH ONETIME PRN PRN Reason: Nausea/Vomiting Sodium Chloride (Sodium Chloride 0.9% 10 Ml Syringe) 10 ml FLUSH ASDIRECTED PRN PRN Reason: Keep Vein Open Sodium Chloride (Sodium Chloride 0.9% 2.5 Ml Syringe) 2.5 ml FLUSH ASDIRECTED PRN PRN Reason: Keep Vein Open Sodium Chloride (Sodium Chloride 0.9% 10 Ml Syringe) 10 ml FLUSH ASDIRECTED PRN PRN Reason: Keep Vein Open Sodium Chloride (Sodium Chloride 0.9% 2.5 Ml Syringe) 2.5 ml FLUSH ASDIRECTED PRN PRN Reason: Keep Vein Open Sodium Chloride (Sodium Chloride 0.9% 10 Ml Sdv) 10 ml IV ASDIRECTED PRN PRN Reason: IV Use Discontinued Medications Docusate Sodium (Docusate Sodium 100 Mg Cap) 100 mg PO ONETIME ONE Stop: 12/03/20 23:10 Last Admin: 12/03/20 23:54 Dose: 100 mg Documented by: Scopolamine (Scopolamine 1.5 Mg Transdermal Patch) 1.5 mg TRDERM ONETIME ONE Stop: 12/04/20 07:56
[2020-12-04] MEDS ORDERED: Midazolam 1 MG/ML 2 ML SDV ONE (09:04)
[2020-12-04] MEDS ORDERED: Propofol 200 MG/20 ML SDV ONE (09:04)
[2020-12-04] MEDS ORDERED: fentaNYL 100 MCG/2 ML SDV ONE (09:04)
[2020-12-04] MEDS ORDERED: Ketorolac 30 MG/ML SDV ONE (09:05)
[2020-12-04] MEDS ORDERED: Ondansetron 4 MG/2 ML SDV ONE (09:05)
[2020-12-04] MEDS ORDERED: Lidocaine 2% 5 ML SDV ONE (09:05)
[2020-12-04] MEDS ORDERED: Glycopyrrolate 0.2 MG/ML SDV ONE (09:05)
[2020-12-04] MEDS ORDERED: Bupivacaine Liposome 1.3% 20 ML SDV INJECT ONE (09:15)
[2020-12-04] MEDS ORDERED: cefOXitin 1 GM Vial ONE (09:23)
[2020-12-04] MEDS ORDERED: Sodium Chloride 0.9% 20 ML ONE (09:23)
[2020-12-04] MEDS ORDERED: HYDROmorphone 1 MG/ML Syringe IVPUSH ONE (10:05)
[2020-12-04] MEDS ORDERED: HYDROmorphone 2 MG/ML Syringe ONE (10:05)
--- NOTE | 2020-12-04 10:10 | PCM.OPNOTE ---
- General Post-Op/Procedure Note Date of Surgery/Procedure: 12/04/20 Operative Procedure(s): Excision right posterior hemorrhoid Findings: Prolapsed and thrombosed right posterior hemorrhoid Pre Op Diagnosis: Prolapsed and thrombosed grade IV hemorrhoid Post-Op Diagnosis: same Anesthesia Technique: General LMA Primary Surgeon: Megan Johns Fluid Replacement, Intraop: 200 EBL in mLs: 5 Condition: Stable Free Text/Narrative:: Intake & Output 12/03/20 12/04/20 12/04/20 22:59 06:59 14:59 Intake Total 1158 Output Total 350 Balance 808
--- NOTE | 2020-12-04 10:56 | PCM.POSTAN ---
POST ANESTHESIA ASSESSMENT - MENTAL STATUS Mental Status: Alert, Oriented - VITAL SIGNS Vital Signs: Last Vital Signs Temp 99.0 F 12/04/20 10:02 Pulse 74 12/04/20 10:42 Resp 14 12/04/20 10:42 BP 103/44 L 12/04/20 10:42 Pulse Ox 93 L 12/04/20 10:42 - RESPIRATORY Respiratory Status: Respiratory Rate WNL, Airway Patent, O2 Saturation Stable - CARDIOVASCULAR CV Status: Pulse Rate WNL, Blood Pressure Stable - GASTROINTESTINAL GI Status: No Symptoms - POST OP HYDRATION Hydration Status: Adequate & Stable
--- NOTE | 2020-12-04 10:56 | PCM48HPAN ---
Post Anesthesia Note - EVALUATION WITHIN 48HRS OF ANESTHETIC Vital Signs in Normal Range: Yes Patient Participated in Evaluation: Yes Respiratory Function Stable: Yes Airway Patent: Yes Cardiovascular Function Stable: Yes Hydration Status Stable: Yes Pain Control Satisfactory: Yes Nausea and Vomiting Control Satisfactory: Yes Mental Status Recovered: Yes Vital Signs: Last Vital Signs Temp 99.0 F 12/04/20 10:02 Pulse 74 12/04/20 10:42 Resp 14 12/04/20 10:42 BP 103/44 L 12/04/20 10:42 Pulse Ox 93 L 12/04/20 10:42
[2020-12-04 15:03] VITALS: PULSE 72
[2020-12-04 16:54] VITALS: BP 110/57
--- NOTE | 2020-12-04 18:10 | OR ---
SURGEON: MEGAN JOHNS MD DATE OF PROCEDURE: 12/03/2020 PREOPERATIVE DIAGNOSIS: Prolapsed and thrombosed grade 4 hemorrhoid. POSTOPERATIVE DIAGNOSIS: Right posterior prolapsed and thrombosed hemorrhoid. PROCEDURE PERFORMED: Hemorrhoidectomy. PRIMARY SURGEON: Megan Jonhs MD ANESTHESIA: General LMA. FLUIDS: 200 mL crystalloid. ESTIMATED BLOOD LOSS: 5 mL. FINDINGS: Right posterior thrombosed and prolapsed hemorrhoid. COMPLICATIONS: None. INDICATIONS: The patient is a 25-year-old female who five days ago underwent an excision of a left posterior grade 4 hemorrhoid. The patient was doing well until yesterday morning when she developed a painful enlarging mass protruding from her anus. She presented to the emergency room. On physical examination, the patient had a large thrombosed hemorrhoid. She was in such pain that I was unable to perform an adequate physical exam and could not perform a MAN. The patient was admitted for pain control. This morning, she is comfortable and we discussed the need to go to the operating room for an exam under anesthesia and possible excision of what appears to be a thrombosed hemorrhoid. The patient and I discussed the procedure, the possible expected perioperative courses, and the risks including bleeding, infection, or damage to surrounding structures including alteration of continence. The patient verbalized understanding and wishes to proceed. PROCEDURE IN DETAIL: The patient was brought in to the OR and placed on the OR cart in supine position. A time-out was completed verifying the patient's name, age, date of , allergies, and procedure to be performed. General LMA anesthesia was induced. The patient was then placed in the left lateral decubitus position taking care to appropriately secure the patient to the cart and pad all bony prominences. The buttocks were then prepped and draped in usual standard fashion. With the patient asleep, I could get a better examination of the anoderm. The suture line from my previous surgery appeared to be intact with no evidence of complications. There was some ecchymosis along the posterior anoderm. On the right posterior anoderm, the patient had a thrombosed and prolapsed hemorrhoid. A digital rectal exam was performed which confirmed this. A small anal retractor was put in place. I grasped the thrombosed hemorrhoid with a Lazara clamp and elevated it from the surrounding tissues. Using needle- tip cautery, I then dissected this tissue off the surrounding skin. A large clot was encountered. This was suctioned out. I then carried my dissection into the anal canal taking care to avoid cautery injury to any of the surrounding structures. The tissue was then removed and placed on the back table. It was sent to Pathology, labeled as hemorrhoid. I then closed my mucosal defect with a 2-0 chromic suture. Approximately within the anal canal, I began my suture line by performing a running locking stitch. As the incision transitioned to the anoderm, I transitioned to a simple stitch. This was then stitched back upon itself so that the knot was tied within the anal canal. I then irrigated the anal canal and rectum and suctioned this out. The suture line appeared to be hemostatic. The retractor was removed and 10 mL of Exparel was injected circumferentially around the anoderm. 4 x 4 fluffs and mesh underwear were applied. The patient tolerated the procedure well, was extubated, and taken to PACU in stable condition. All counts were complete and correct at the end of the case. DANIEL / PATRICIO /[id number]
--- NOTE | 2020-12-07 17:42 | PCM.DCSUM1 ---
Discharge Summary - Hospital Course Free Text/Narrative:: Patient is 25-year-old female who presented to the emergency room with a thrombosed and prolapsed internal hemorrhoid. She underwent a hemorrhoidectomy 4 days ago. Last night she developed some pain around her anus. This morning she noticed a lesion along the posterior anoderm. It has been getting larger in size and more painful. She presented to the emergency room. She is found to have a thrombosed and prolapsed hemorrhoid on the other side of her anoderm from where her previous surgery was performed. She is admitted to the hospital for pain control. In the morning she was more comfortable and taken to the operating room for a hemorrhoidectomy. She had pain medially postop which was treated with IV Dilaudid. She did well in the postoperative period. By the evening her pain was well controlled on oral medications. She was tolerating a regular diet and her vital signs are stable. She was cleared for discharge. - Discharge Data Discharge Date: 12/04/20 Discharge Disposition: Home, Self-Care 01 Condition: Stable - Referral to Home Health Primary Care Physician: PCP None - Discharge Diagnosis/Problem(s) (1) Thrombosed grade IV hemorrhoid SNOMED Code(s): [id number] ICD Code: K64.3 - FOURTH DEGREE HEMORRHOIDS Status: Acute - Patient Summary/Data Operative Procedure(s) Performed: Excision right posterior hemorrhoid - Patient Instructions Diet: Regular Diet as Tolerated, Drink 8-10+ Glasses/Day Diet, Other: High fiber diet Activity: No Lifting Over 20 Pounds Driving: Do Not Drive Showering/Bathing: May Shower Showering/Bathing, Other: Sitz baths BID or after BMs Notify Provider of: Fever, Increased Pain, Swelling and Redness, Drainage - Discharge Plan *PRESCRIPTION DRUG MONITORING PROGRAM REVIEWED*: Yes *COPY OF PRESCRIPTION DRUG MONITORING REPORT IN PATIENT JOSE: Yes Home Medications: Home Meds Desogestrel/Ethinyl Estradiol [Apri] 1 tab PO DAILY 10/26/20 [History] Ergocalciferol (Vitamin D2) [Vitamin D2] 1.25 mg PO ASDIRECTED 10/26/20 [History] Phentermine HCl 15 mg PO DAILY 10/26/20 [History] Albuterol [Ventolin HFA] 1 - 2 puff INH ASDIRECTED PRN 11/23/20 [History] Fluticasone Propionate [Flonase Allergy Relief] 1 spray JAKE ASDIRECTED PRN 11/23/20 [History] Lidocaine 5% 35.44 gm .XX 6XDAY PRN #1 tube 11/29/20 [Rx] Patient Handouts: Acetaminophen; Hydrocodone tablets or capsules, Surgical Procedures for Hemorrhoids, Care After Referrals: Megan Johns MD [Physician] - (keep previous appointment) Dominique Kurtz PA [Physician Ophthalmic Asst] - 12/13/20 2:00 pm - Discharge Summary/Plan Comment DC Time >30 min.: No - General Info Date of Service: 12/07/20 Functional Status: Reports: Pain Controlled, Tolerating Diet, Ambulating, Urinating. Denies: New Symptoms - Review of Systems General: Reports: No Symptoms HEENT: Reports: No Symptoms Pulmonary: Reports: No Symptoms Cardiovascular: Reports: No Symptoms Gastrointestinal: Reports: No Symptoms Genitourinary: Reports: No Symptoms Musculoskeletal: Reports: No Symptoms - Patient Data Vitals - Most Recent: Last Vital Signs Temp 36.6 C 12/04/20 16:00 Pulse 72 12/04/20 16:00 Resp 20 12/04/20 16:00 BP 110/57 L 12/04/20 16:00 Pulse Ox 95 12/04/20 16:00 Weight - Most Recent: 133.9 kg Med Orders - Current: Current Medications Discontinued Medications Hydrocodone Bitart/Acetaminophen (Acetaminophen/Hydrocodone 325-5 Mg Tab) 2 tab PO Q4H PRN PRN Reason: MODERATE PAIN Last Admin: 12/04/20 00:06 Dose: 2 tab Documented by: Albuterol (Albuterol 0.083% 2.5 Mg/3 Ml Neb Soln) 2.5 mg NEB ONETIME PRN PRN Reason: Wheezing Bupivacaine Liposome (Bupivacaine Liposome 1.3% 20 Ml Sdv) 20 ml INJECT ONETIME ONE Stop: 12/04/20 09:16 Cefoxitin Sodium (Cefoxitin 1 Gm Vial) Confirm Administered Dose 2 gm .ROUTE .STK-MED ONE Stop: 12/04/20 09:24 Diazepam (Diazepam 10 Mg/2 Ml Syringe) 5 mg IV ONETIME ONE Stop: 12/04/20 10:07 Docusate Sodium (Docusate Sodium 100 Mg Cap) 100 mg PO ONETIME ONE Stop: 12/03/20 23:10 Last Admin: 12/03/20 23:54 Dose: 100 mg Documented by: Droperidol (Droperidol 5 Mg/2 Ml Sdv) 0.625 mg IVPUSH ONETIME PRN PRN Reason: Nausea/Vomiting Fentanyl (Fentanyl 100 Mcg/2 Ml Sdv) 50 mcg IVPUSH Q5M PRN PRN Reason: Pain (mild 1-3) Last Admin: 12/04/20 10:20 Dose: 50 mcg Documented by: Fentanyl (Fentanyl 100 Mcg/2 Ml Sdv) Confirm Administered Dose 100 mcg .ROUTE .STK-MED ONE Stop: 12/04/20 09:05 Glycopyrrolate (Glycopyrrolate 0.2 Mg/Ml Sdv) Confirm Administered Dose 0.2 mg .ROUTE .STK-MED ONE Stop: 12/04/20 09:06 Hydromorphone HCl (Hydromorphone 1 Mg/Ml Syringe) 0.5 mg IVPUSH Q1H PRN PRN Reason: Pain (severe 7-10) Last Admin: 12/03/20 22:09 Dose: 0.5 mg Documented by: Hydromorphone HCl (Hydromorphone 2 Mg/Ml Syringe) 0.5 mg IVPUSH Q10M PRN PRN Reason: Pain (moderate 4-6) Hydromorphone HCl (Hydromorphone 1 Mg/Ml Syringe) 1 mg IVPUSH ONETIME ONE Stop: 12/04/20 10:06 Last Admin: 12/04/20 10:05 Dose: 1 mg Documented by: Hydromorphone HCl (Hydromorphone 2 Mg/Ml Syringe) Confirm Administered Dose 2 mg .ROUTE .STK-MED ONE Stop: 12/04/20 10:06 Lactated Ringer's (Ringers, Lactated) 1,000 mls @ 100 mls/hr IV ASDIRECTED [facility] Last Admin: 12/04/20 03:38 Dose: 100 mls/hr Documented by: Sodium Chloride (Normal Saline) Confirm Administered Dose 20 mls @ as directed .ROUTE .STK-MED ONE Stop: 12/04/20 09:24 Acetaminophen (Ofirmev 1000 Mg/100 Ml) Confirm Administered Dose 100 mls @ as directed .ROUTE .STK-MED ONE Stop: 12/04/20 10:04 Last Admin: 12/04/20 10:27 Dose: 400 mls/hr Documented by: Ketorolac Tromethamine (Ketorolac 30 Mg/Ml Sdv) 30 mg IVPUSH Q6H [facility] Stop: 12/04/20 11:16 Last Admin: 12/04/20 15:03 Dose: Not Given Documented by: Ketorolac Tromethamine (Ketorolac 30 Mg/Ml Sdv) Confirm Administered Dose 30 mg .ROUTE .STK-MED ONE Stop: 12/04/20 09:06 Lidocaine (Lidocaine 2% 5 Ml Sdv) Confirm Administered Dose 5 ml .ROUTE .STK-MED ONE Stop: 12/04/20 09:06 Metoclopramide HCl (Metoclopramide 10 Mg/2 Ml Sdv) 10 mg IVPUSH ONETIME PRN PRN Reason: Nausea/Vomiting Midazolam HCl (Midazolam 1 Mg/Ml 2 Ml Sdv) Confirm Administered Dose 2 mg .ROUTE .STK-MED ONE Stop: 12/04/20 09:05 Naloxone HCl (Naloxone 0.4 Mg/Ml Syringe) 0.1 mg IVPUSH ASDIRECTED PRN PRN Reason: Respiratory Depression Ondansetron HCl (Ondansetron 4 Mg/2 Ml Sdv) 4 mg IVPUSH ONETIME PRN PRN Reason: Nausea/Vomiting Ondansetron HCl (Ondansetron 4 Mg/2 Ml Sdv) Confirm Administered Dose 4 mg .ROUTE .STK-MED ONE Stop: 12/04/20 09:06 Propofol (Propofol 200 Mg/20 Ml Sdv) Confirm Administered Dose 200 mg .ROUTE .[employer]-MED ONE Stop: 12/04/20 09:05 Scopolamine (Scopolamine 1.5 Mg Transdermal Patch) 1.5 mg TRDERM ONETIME ONE Stop: 12/04/20 07:56 Last Admin: 12/04/20 09:09 Dose: 1.5 mg Documented by: Sodium Chloride (Sodium Chloride 0.9% 10 Ml Syringe) 10 ml FLUSH ASDIRECTED PRN PRN Reason: Keep Vein Open Sodium Chloride (Sodium Chloride 0.9% 2.5 Ml Syringe) 2.5 ml FLUSH ASDIRECTED PRN PRN Reason: Keep Vein Open Sodium Chloride (Sodium Chloride 0.9% 10 Ml Syringe) 10 ml FLUSH ASDIRECTED PRN PRN Reason: Keep Vein Open Sodium Chloride (Sodium Chloride 0.9% 2.5 Ml Syringe) 2.5 ml FLUSH ASDIRECTED PRN PRN Reason: Keep Vein Open Sodium Chloride (Sodium Chloride 0.9% 10 Ml Sdv) 10 ml IV ASDIRECTED PRN PRN Reason: IV Use - Exam General: Reports: Alert, Oriented, Cooperative Lungs: Reports: Clear to Auscultation Cardiovascular: Reports: Regular Rate GI/Abdominal Exam: Soft, Non-Tender, No Distention, No Mass
== END 2020-12-04 17:46 | disposition home or self-care (01) ==
LOC: MW.ED 14:46 → MW.MS 16:51
PROVIDERS: ADMIT Surgery; ATTEND Surgery
DX: K64.3 Fourth degree hemorrhoids (principal); E66.9 Obesity, unspecified; Z79.899 Other long term (current) drug therapy; Z88.8 Allergy status to other drugs, medicaments and biological substances; Z98.890 Other specified postprocedural states; Z68.42 Body mass index [BMI] 45.0-49.9, adult
CPT/HCPCS: 36415; 46320; 85025; 88304; 96374; 99284; A9270; J0131; J0694; J1170; J1885; J2250; J2405; J2704; J3010; J3490; J7120; 00902

== ENCOUNTER 2021-12-28 08:41 | Inpatient (IN) | payer OTHER ==
[2021-12-28] MEDS ORDERED: ceFAZolin 2 GM in Premix Bag 1 BAG IV ONE (09:59)
[2021-12-28] MEDS ORDERED: Sodium Chloride 0.9% 10 ML Syringe FLUSH PRN (09:59)
[2021-12-28] MEDS ORDERED: Sodium Chloride 0.9% 2.5 ML Syringe FLUSH PRN (09:59)
[2021-12-28] MEDS ORDERED: Sodium Chloride 0.9% 20 ML SDV IV PRN (09:59)
[2021-12-28] MEDS ORDERED: Lactated Ringers 1,000 ML IV SCH ×2 (10:00→12:45)
[2021-12-28] MEDS ORDERED: Oxytocin/0.9 % Sodium Chloride 30 UNIT/500 ML BAG IV SCH ×2 (10:00→12:45)
[2021-12-28] MEDS ORDERED: diphenhydrAMINE 50 MG/ML SDV IVPUSH PRN ×2 (10:22→12:39)
[2021-12-28] MEDS ORDERED: fentaNYL 50 MCG/ML SDV IVPUSH PRN (10:22)
[2021-12-28] MEDS ORDERED: ePHEDrine 50 MG/ML SDV IVPUSH PRN (10:22)
[2021-12-28] MEDS ORDERED: HYDROmorphone 1 MG/ML Syringe IVPUSH PRN (10:22)
[2021-12-28] MEDS ORDERED: Morphine 4 MG/ML VIAL IVPUSH PRN (10:22)
[2021-12-28] MEDS ORDERED: Naloxone 0.4 MG/ML SDV IVPUSH PRN (10:22)
[2021-12-28] MEDS ORDERED: Ondansetron 4 MG/2 ML SDV IVPUSH PRN ×3 (10:22→12:39)
[2021-12-28] MEDS ORDERED: fentaNYL 100 MCG/2 ML SDV IVPUSH PRN (10:22)
[2021-12-28] MEDS ORDERED: Metoclopramide 10 MG/2 ML SDV IVPUSH PRN (10:22)
[2021-12-28] MEDS ORDERED: Albuterol 0.083% 2.5 MG/3 ML Neb Soln NEB PRN (10:22)
[2021-12-28] MEDS ORDERED: Lidocaine 2% 5 ML SDV ONE (10:53)
[2021-12-28] MEDS ORDERED: Dexamethasone 4 MG/ML 5 ML MDV ONE (10:53)
[2021-12-28] MEDS ORDERED: fentaNYL 100 MCG/2 ML SDV ONE (10:53)
[2021-12-28] MEDS ORDERED: Ondansetron 4 MG/2 ML SDV ONE ×3 (10:53→12:05)
[2021-12-28] MEDS ORDERED: Morphine PF 10 MG/10 ML SDV ONE (10:53)
[2021-12-28] MEDS ORDERED: ceFAZolin 1 GM Vial ONE ×2 (10:53→10:55)
[2021-12-28] MEDS ORDERED: Midazolam 1 MG/ML 2 ML SDV ONE (11:17)
[2021-12-28] MEDS ORDERED: Oxytocin 10 Units/1 ML SDV ONE (12:04)
[2021-12-28] MEDS ORDERED: Ketorolac 30 MG/ML SDV ONE (12:22)
[2021-12-28] MEDS ORDERED: Bisacodyl 10 MG Supp RECTAL PRN (12:39)
[2021-12-28] MEDS ORDERED: Oxytocin 10 Units/1 ML SDV IM PRN (12:39)
[2021-12-28] MEDS ORDERED: Misoprostol 200 MCG Tab RECTAL PRN (12:39)
[2021-12-28] MEDS ORDERED: Methylergonovine 0.2 MG/1 ML Amp IM PRN (12:39)
[2021-12-28] MEDS ORDERED: Acetaminophen/oxyCODONE 325-5 MG Tab PO PRN ×2 (12:39)
[2021-12-28] MEDS ORDERED: Lanolin 100% Cream 7 GM Tube TOP PRN (12:39)
[2021-12-28] MEDS ORDERED: Tranexamic Acid 1,000 MG in Sodium Chloride 0.9% 100 ML IV PRN (12:39)
[2021-12-28] MEDS ORDERED: Nalbuphine HCl 10 MG/ 1ML Amp ONE (13:01)
[2021-12-28] MEDS: Nalbuphine HCl 10 MG/ 1ML Amp IVPUSH PRN ×4 (13:20→20:37)
[2021-12-28] MEDS: Ketorolac 30 MG/ML SDV IVPUSH SCH ×2 (15:44→19:07)
[2021-12-28] MEDS: Docusate Sodium 100 MG Cap PO SCH (20:38)
[2021-12-29] MEDS: Nalbuphine HCl 10 MG/ 1ML Amp IVPUSH PRN (00:21)
[2021-12-29] MEDS: Ketorolac 30 MG/ML SDV IVPUSH SCH ×3 (00:46→12:29)
[2021-12-29] MEDS: Docusate Sodium 100 MG Cap PO SCH ×2 (08:16→20:47)
[2021-12-29] MEDS: Acetaminophen/oxyCODONE 325-5 MG Tab PO PRN ×2 (16:27→22:51)
[2021-12-29] MEDS: Ibuprofen 800 MG Tab PO PRN (19:58)
[2021-12-30] MEDS: Ibuprofen 800 MG Tab PO PRN (04:09)
[2021-12-30] MEDS ORDERED: Acetaminophen/HYDROcodone 325-5 MG Tab PO PRN (06:20)
[2021-12-30 08:05] VITALS: BP 116/62; PULSE 77
[2021-12-30] MEDS: Docusate Sodium 100 MG Cap PO SCH (09:01)
== END 2021-12-30 10:33 | disposition home or self-care (01) | DRG 788 ==
LOC: MW.OBCHECK 08:41 → MW.OB 08:42 → MW.OBCHECK 09:58 → MW.OB 09:59
PROVIDERS: ADMIT Obstetrics & Gynecology; ATTEND Obstetrics & Gynecology
PROC: 10D00Z1 Extraction of Products of Conception, Low, Open Approach (ICD-10-PCS; principal; 2021-12-28)
DX: O99.214 Obesity complicating childbirth (principal); Z3A.38 38 weeks gestation of pregnancy; Z37.0 Single live birth; O34.211 Maternal care for low transverse scar from previous cesarean delivery; E66.01 Morbid (severe) obesity due to excess calories; O13.4 Gestational [pregnancy-induced] hypertension without significant proteinuria, complicating childbirth; Z20.822 Contact with and (suspected) exposure to COVID-19
CPT/HCPCS: 01961; 36415; 59025; 81001; 82803; 85014; 85018; 85027; 86592; 86850; 86900; 86901; A9270-GY; J0131; J0690; J1100; J1885; J2250; J2274; J2300; J2405; J2590; J3010; J7120; U0002

== ENCOUNTER 2022-06-07 14:51 | Emergency (ER) | payer OTHER ==
[2022-06-07] MEDS ORDERED: Ibuprofen 800 MG Tab PO ONE (22:24)
[2022-06-07 23:48] VITALS: BP 134/89; PULSE 71
== END 2022-06-07 22:45 | disposition home or self-care (01) ==
LOC: MW.ED 14:51
DX: S99.922A Unspecified injury of left foot, initial encounter (principal); E66.9 Obesity, unspecified; Z68.42 Body mass index [BMI] 45.0-49.9, adult; Z88.1 Allergy status to other antibiotic agents; X50.1XXA Overexertion from prolonged static or awkward postures, initial encounter
CPT/HCPCS: 73610; 73630; 99283; A9270

== ENCOUNTER 2024-07-01 03:04 | Emergency (ER) | payer OTHER ==
[2024-07-01 04:27] LABS: BASOPHILS ABSOLUTE AUTO 0.02 K/uL (0.00-0.20); BASOPHILS PERCENT AUTO 0.3 % (0.0-1.0); EOSINOPHILS ABSOLUTE AUTO 0.03 K/uL (0.00-0.45); EOSINOPHILS PERCENT AUTO 0.4 % (0.0-6.0); HEMATOCRIT 39.1 % (37.0-47.0); HEMOGLOBIN 12.9 g/dL (12.0-16.0); IMMATURE GRAN ABSOLUTE AUTO 0.02 K/uL (0.00-0.05); IMMATURE GRAN PERCENT AUTO 0.3 % (0.0-0.4); LYMPHOCYTES PERCENT AUTO 13.1 % (24.0-44.0); MEAN CORPUSCULAR HEMOGLOBIN 27.4 pg (28.0-32.0); MEAN PLATELET VOLUME 9.7 fL (9.4-12.3); MONOCYTES ABSOLUTE AUTO 0.49 K/uL (0.00-0.80); MONOCYTES PERCENT AUTO 6.4 % (0.0-8.0); NEUTROPHILS ABSOLUTE AUTO 6.06 K/uL (1.80-7.70); NEUTROPHILS PERCENT AUTO 79.5 % (41.0-71.0); PLATELET COUNT,PLT 335 K/uL (150-400); RED BLOOD CELL COUNT 4.71 M/uL (4.10-5.30); WHITE BLOOD CELL COUNT,WBC 7.62 K/uL (3.9-11.3)
[2024-07-01] MEDS: Metoclopramide 10 MG/2 ML SDV IVPUSH ONE (04:27)
[2024-07-01 04:28] LABS: APPEARANCE,URINE CLEAR; BILIRUBIN,URINE NEGATIVE (NEGATIVE); COLOR,URINE YELLOW; GLUCOSE,URINE NEGATIVE (NEGATIVE); KETONES,URINE NEGATIVE (NEGATIVE); LEUKOCYTE ESTERASE,URINE NEGATIVE (NEGATIVE); NITRITE,URINE NEGATIVE (NEGATIVE); OCCULT BLOOD,URINE MODERATE (NEGATIVE); PH,URINE 6.5 (5.0-8.0); PROTEIN,URINE NEGATIVE (NEGATIVE); UROBILINOGEN,URINE 0.2 EU/dL (<2.0)
[2024-07-01] MEDS: Ketorolac 30 MG/ML SDV IVPUSH ONE (04:28)
[2024-07-01 04:35] VITALS: PULSE 73
[2024-07-01 04:37] LABS: BACTERIA,URINE FEW (NEGATIVE); EPITHELIAL CELLS,URINE RARE (NONE-FEW); WBC,URINE 0-1 (0-5/HPF)
[2024-07-01 04:51] LABS: ALBUMIN 3.9 g/dL (3.4-5.0); BILIRUBIN TOTAL 0.6 mg/dL (0.2-1.0); CALCIUM 9.2 mg/dL (8.5-10.1); CARBON DIOXIDE,CO2 24.5 mmol/L (21.0-32.0); CREATININE 0.8 mg/dL (0.6-1.0); EST CRCL DRUG DOSING (CG) 98.88 mL/min; POTASSIUM,K 4.3 mmol/L (3.5-5.1)
[2024-07-01 06:13] VITALS: BP 142/68
== END 2024-07-01 06:00 | disposition home or self-care (01) ==
LOC: MW.ED 03:04
DX: R10.11 Right upper quadrant pain (principal); R11.2 Nausea with vomiting, unspecified; J45.909 Unspecified asthma, uncomplicated; E66.9 Obesity, unspecified; Z68.41 Body mass index [BMI] 40.0-44.9, adult; Z88.8 Allergy status to other drugs, medicaments and biological substances
CPT/HCPCS: 36415; 80053; 81001; 81025; 83690; 85025; 96374; 96375; 99284; J1885; J2765